=== PATIENT | male | born 1960 | race Caucasian/White ===

== ENCOUNTER → 2017-06-12 | Outpatient (CLI) | payer BC ==
[2017-06-12 10:37] LABS: Basophils % (A) 1 %; CH 31.2; Eosinophils # (A) 0.1 k/uL (0-0.7); Eosinophils % (A) 2 %; HCT 43.4 % (39.0-53.0); HDW 2.63; HGB 14.9 gm/dL (13.0-17.5); Luc % (Auto) 3; Lymphocytes # (A) 2.8 k/uL (1.0-4.8); Lymphocytes % (A) 37 %; MCH 30.9 pg (25.0-35.0); MCHC 34.5 g/dL (31.0-37.0); MCV 89.6 fL (80.0-100.0); Mean Platelet Volume 6.9; Monocytes # (A) 0.5 k/uL (0-1.0); Monocytes % (A) 6 %; Neutrophils # (A) 3.8 k/uL (1.3-7.7); Neutrophils % (A) 52 %; RBC 4.84 m/uL (4.30-5.90); RDW 13.1 % (11.5-15.5); WBC 7.4 k/uL (3.8-10.6); WBC (Perox) 7.82
[2017-06-12 11:01] LABS: ALT 81 U/L (21-72); AST 40 U/L (17-59); Alkaline Phosphatase 49 U/L (38-126); Anion Gap 9 mmol/L; Blood Urea Nitrogen 20 mg/dL (9-20); Calcium 9.3 mg/dL (8.4-10.2); Carbon Dioxide 25 mmol/L (22-30); Chloride 106 mmol/L (98-107); Cholesterol 115 mg/dL (<200); Glucose 107 mg/dL (74-99); HDL Cholesterol 54 mg/dL (40-60); Non-African American GFR(MDRD) >60 (>60 ml/min/1.73 sqM); Potassium 4.1 mmol/L (3.5-5.1); Sodium 140 mmol/L (137-145); Total Bilirubin 0.6 mg/dL (0.2-1.3); Total Protein 7.2 g/dL (6.3-8.2)
== END | disposition home or self-care (01) ==
LOC: LABWHC1 08:59
PROVIDERS: ATTEND Internal Medicine
DX: E78.2 Mixed hyperlipidemia (principal); I10 Essential (primary) hypertension; R53.83 Other fatigue
CPT/HCPCS: 36415; 80053; 80061; 84403; 84439; 84443; 84481; 85025

== ENCOUNTER → 2017-07-10 | Outpatient (CLI) | payer BC ==
--- NOTE | 2017-07-10 08:29 | CT ---
EXAMINATION TYPE: CT soft tissue neck w con DATE OF EXAM: 07/10/2017 7:21 AM COMPARISON: NONE HISTORY: Nasopharyngitis, nasopharyngeal mass. Sx hx removal of Uvula CT DLP: 685.5 mGycm Automated exposure control for dose reduction was used. CONTRAST: CT scan of the neck is performed following with IV Contrast, patient injected with 100 mL of Omnipaqu e 300. Axial images are obtained, coronal and sagittal reformatted images are reviewed. FINDINGS: Airway: No gross abnormality seen. Lung apices are within normal limits. Parotid/submandibular glands: No gross abnormality seen. Carotid/Vascular Structures: Patent, no evidence stenosis. Osseous Structures: Degenerative disc changes are present. Spondylosis is present greatest at C4-5, C 5-6, C6-7. There is some motion present. There is some multilevel foraminal encroachment. Other: Mucosal disease present within the bilateral maxillary and sphenoid sinus, there may be polyp disease or mucous retention cyst present. Skull base is normal. Uvula has been removed. IMPRESSION: Nasopharyngeal mass is not evident, correlate clinically. Postop changes. Sinus disease. Degenerative disc disease.
== END | disposition home or self-care (01) ==
LOC: RADCTMAIN 06:45
PROVIDERS: ATTEND Otolaryngology
DX: J31.1 Chronic nasopharyngitis (principal); Z98.890 Other specified postprocedural states
CPT/HCPCS: 70491; Q9967

== ENCOUNTER → 2018-12-07 | Outpatient (CLI) | payer OTHER ==
--- NOTE | 2018-12-07 08:42 | CT ---
EXAMINATION TYPE: CT chest w con DATE OF EXAM: 12/07/2018 COMPARISON: NONE HISTORY: Cough, Shortness of Breath CT DLP: 741.8 mGycm. Automated Exposure Control for Dose Reduction was Utilized. TECHNIQUE: CT scan of the thorax is performed following with IV Contrast, patient injected with 100 mL of Isovue 300. FINDINGS: LUNGS: There is a 5 mm solid pulmonary nodule within the left lower lobe along the interlobar fissure on axial series 4 image 39, coronal series 6 image 70, and sagittal series 7 image 104. This appears solid in nature. Right hemidiaphragm elevation is noted with overall low lung volumes and scattered areas of subsegmental atelectasis as well as pleural parenchymal scarring. No focal consolidation is seen. There is no pleural effusion or pneumothorax seen. The tracheobronchial tree is patent. MEDIASTINUM: Incidental note is made of a normal variant bovine aortic arch. There are no greater leoncio n 1 cm hilar or mediastinal lymph nodes. No pericardial effusion is seen. Coronary artery calcifica tions are noted. Ascending thoracic aorta is within normal limits measuring 3.5 cm. OTHER: There are multiple hepatic cysts the largest measuring up to 7 cm. Some subcentimeter hepatic lesions are too small to accurately characterize but are also favored to represent cysts. Hepatic par enchyma is hypoattenuated representing underlying hepatic steatosis, which somewhat limits evaluation for hepatic masses. Incidental note of a duodenal diverticulum is made. Mild multilevel degenerative changes of the spine are noted. IMPRESSION: 1. 5 mm left lower lobe pulmonary nodule for which follow-up is recommended in 6-12 months given no p riors for comparison. 2. Low lung volumes with scattered areas of subsegmental atelectasis and pleural parenchymal scarring . No evidence of focal consolidation to suggest pneumonia, pleural effusion, pneumothorax or intersti tial lung disease.
== END | disposition home or self-care (01) ==
LOC: RADCTMAIN 06:45
PROVIDERS: ATTEND Internal Medicine
DX: J98.11 Atelectasis (principal); J94.8 Other specified pleural conditions; R91.1 Solitary pulmonary nodule
CPT/HCPCS: 71260; Q9967

== ENCOUNTER → 2019-05-24 | Outpatient (CLI) | payer OTHER ==
[2019-05-24 08:23] LABS: HGB 15.4 gm/dL (13.0-17.5); MCH 30.4 pg (25.0-35.0); MCHC 34.3 g/dL (31.0-37.0); MCV 88.9 fL (80.0-100.0); Platelet Count 225 k/uL (150-450); RBC 5.07 m/uL (4.30-5.90); RDW 12.8 % (11.5-15.5); WBC 7.4 k/uL (3.8-10.6)
--- NOTE | 2019-05-24 08:29 | CT ---
EXAMINATION TYPE: CT chest w con DATE OF EXAM: 05/24/2019 COMPARISON: 12/07/2018 HISTORY: Solitary pulmonary nodule CT DLP: 930 mGycm Automated exposure control for dose reduction was used. CONTRAST: CT scan of the chest is performed with IV Contrast, patient injected with 100 ml mL of Isovue 300. FINDINGS: LUNGS: The lungs are grossly clear, there is no concerning parenchymal mass or nodule identified. T here is no pleural effusion or pneumothorax seen. The tracheobronchial tree is patent. MEDIASTINUM: There are no greater than 1 cm hilar or mediastinal lymph nodes. No pericardial effusi on is seen. Thoracic aorta is of normal caliber. The heart is not enlarged. UPPER ABDOMEN: Multiple hepatic cysts redemonstrated. Hepatic steatosis. OTHER: No additional significant abnormality is seen. IMPRESSION: 1. Previously noted pulmonary nodule is not redemonstrated. 2. Hepatic steatosis. 3. Multiple hepatic cysts.
[2019-05-24 08:46] LABS: ALT 80 U/L (21-72); AST 39 U/L (17-59); African American GFR (CKD) >90 (>60 ml/min/1.73 sqM); Albumin 4.6 g/dL (3.5-5.0); Alkaline Phosphatase 49 U/L (38-126); Anion Gap 10 mmol/L; Blood Urea Nitrogen 22 mg/dL (9-20); Calcium 9.4 mg/dL (8.4-10.2); Carbon Dioxide 27 mmol/L (22-30); Chloride 101 mmol/L (98-107); Cholesterol 120 mg/dL (<200); Glucose 113 mg/dL (74-99); HDL Cholesterol 39 mg/dL (40-60); LDL Cholesterol,Calculated 67 mg/dL (0-99); Non-African American GFR(CKD) 81 (>60 ml/min/1.73 sqM); Potassium 4.1 mmol/L (3.5-5.1); Sodium 138 mmol/L (137-145); Total Bilirubin 0.9 mg/dL (0.2-1.3); Total Protein 7.4 g/dL (6.3-8.2); Triglycerides 72 mg/dL (<150)
== END | disposition home or self-care (01) ==
LOC: RADCTMAIN 06:32
PROVIDERS: ATTEND Internal Medicine
DX: R91.1 Solitary pulmonary nodule (principal); I10 Essential (primary) hypertension; R94.5 Abnormal results of liver function studies; E55.9 Vitamin D deficiency, unspecified; G47.30 Sleep apnea, unspecified
CPT/HCPCS: 80061; 80053; 85027; 82306; 71260; Q9967

== ENCOUNTER 2019-09-29 09:37 | Emergency (ER) | payer OTHER ==
[2019-09-29 09:45] VITALS: RESP 18
[2019-09-29] MEDS ORDERED: DIPH,PERTUS(ACELL)TETVAC-LF 0.5 ML VIAL IM ONE (10:35)
[2019-09-29] MEDS ORDERED: ceFAZolin 1,000 MG VIAL (IM USE) IM STA (10:35)
--- NOTE | 2019-09-29 10:57 | XR ---
EXAMINATION TYPE: XR humerus RT DATE OF EXAM: 09/29/2019 COMPARISON: NONE HISTORY: Pain TECHNIQUE: 2 views submitted. FINDINGS: The osseous structures are intact and the joint spaces are preserved. There is air overlying the mid humerus likely related to soft tissue laceration correlate clinically to exclude infectious etiology . IMPRESSION: 1. No acute fracture or dislocation. See above.
[2019-09-29] MEDS ORDERED: LIDOCAINE/EPINEPHR/TETRACAINE 5 ML BOTTLE TOPICAL ONE (10:59)
[2019-09-29] MEDS ORDERED: LIDOCAINE 1% INJ 10MG/ML (20 ML MDV) SQ ONE (10:59)
--- NOTE | 2019-09-29 12:24 | ED ---
Wound/Laceration HPI - General Chief Complaint: Wound/Laceration Stated Complaint: rt arm lac Source: patient Mode of arrival: ambulatory Limitations: no limitations - History of Present Illness Initial Comments: 58-year-old male with on known history of tetanus vaccination presented emergency department for chief complaint of laceration to the right bicep her patient sutures using a carbide grinder when it slipped cutting his right bicep. This is the medial aspect. Patient denies any limitations in strength. Patient states putting his control. Patient denies any numbness tingling loss sensation or decreased range of motion distal to the injury. Patient denies any close or pallor of the extremity. Patient denied a lightheaded sensation or any other complaints denies any other areas of injury. Patient that the area might need repair presents emergency department for further evaluation. Patient denies any history of diabetes or chronic steroid use. - Related Data Home Medications Medication Instructions Recorded Confirmed Lisinopril-Hctz 20-12.5 mg 1 each PO BID 07/31/17 12/12/18 [Zestoretic 20-12.5] Spironolactone [Aldactone] 25 mg PO DAILY 07/31/17 12/12/18 Cholecalciferol [Vitamin D3] 5,000 unit PO DAILY 12/12/18 12/12/18 Multivit-Min/FA/Lycopen/Lutein 1 each PO DAILY 12/12/18 12/12/18 [Centrum Silver Men Tablet] Previous Rx's Medication Instructions Recorded Furosemide [Lasix] 20 mg PO DAILY #3 tab 12/29/18 Cephalexin [Keflex] 500 mg PO Q6HR 7 Days #28 cap 09/29/19 Allergies Allergy/AdvReac Type Severity Reaction Status Date / Time No Known Allergies Allergy Verified 09/29/19 09:45 Review of Systems ROS Statement: Those systems with pertinent positive or pertinent negative responses have been documented in the HPI. ROS Other: All systems not noted in ROS Statement are negative. Past Medical History Past Medical History: Hypertension, Sleep Apnea/CPAP/BIPAP Additional Past Medical History / Comment(s): BLE EDEMA AT TIMES History of Any Multi-Drug Resistant Organisms: None Reported Past Surgical History: Bowel Resection, Hernia Repair, Tonsillectomy Additional Past Surgical History / Comment(s): UPPP. COLONOSCOPY. sinus surgery with removal of polyps Past Anesthesia/Blood Transfusion Reactions: No Reported Reaction Past Psychological History: No Psychological Hx Reported Smoking Status: Never smoker Past Alcohol Use History: None Reported Past Drug Use History: None Reported - Past Family History Mother Family Medical History: Cancer Father Family Medical History: Cancer General Exam - General Exam Comments Initial Comments: General: The patient is awake and alert, in no distress, and does not appear acutely ill. Eye: Pupils are equal, round and reactive to light, extra-ocular movements are intact. No nystagmus. There is normal conjunctiva bilaterally. No signs of icterus. Ears, nose, mouth and throat: There are moist mucous membranes and no oral lesions. Neck: The neck is supple, there is no tenderness or JVD. Cardiovascular: There is a regular rate and rhythm. No murmur, rub or gallop is appreciated. Respiratory: Lungs are clear to auscultation, respirations are non-labored, breath sounds are equal. No wheezes, stridor, rales, or rhonchi. Musculoskeletal: Normal ROM of the UE b/l, some tenderss to area of the bicep.Strength 5/5 of the biceps triceps with flexion-extension of the elbow. Sensation intact. radial and ulnar pulses equal bilaterally 2+. Patient is able to make the okay finish cross thumbs-up sign extend at the wrist Neurological: A&O x 3. CN II-XII intact grossly, There are no obvious motor or sensory deficits. Coordination appears grossly intact. Speech is normal. Skin: Skin is warm and dry and no rashes. 4.0 cm laceration of the right bicep medially middle aspect no tendon exposure through dermis, exposing muscle belly. No evidence of muscle belly rupture. No active bleeding Psychiatric: Cooperative, appropriate mood & affect, normal judgment. Limitations: no limitations Course Vital Signs 09/29/19 09/29/19 09:40 13:07 Temperature 97.8 F 98.3 F Pulse Rate 77 79 Respiratory 18 18 Rate Blood Pressure 171/89 141/99 O2 Sat by Pulse 98 98 Oximetry Procedures - Laceration Laceration #1 Consent Obtained: verbal consent Indication: laceration Site: upper extremity (right arm) Description: linear Depth: involves muscle layer (to the muscle belly) Anesthetic Used: lidocaine 1% Anesthesia Technique: local infiltration Amount (mls): 4 Pre-repair: wound explored, irrigated extensively, extensive debridement (of wound edges as they were cauterized by the edges of the carbide grinder) Type of Sutures: nylon, vicryl Size of Sutures: 4-0 (nylon), 5-0 (vicyrl) Number of Sutures: 12 (3 internal sutures with buried knot, 9 external nylon both simple interrupted) Technique: simple, interrupted Patient Tolerated Procedure: well, no complications Additional Comments: Sterile procedure. extensive irrigation, debridment of edges, exploration internal/external repair. Medical Decision Making - Medical Decision Making 68-year-old male presenting for right arm laceration. Repaired internally (vicryl 5.0) and externally (nylon 4.0). Wound was a valid prior vomiting provider who is agreeable with the repair process. Wound edges approximated well. Patient replaced and prosodic antibiotic tetanus was updated. X-ray revealed no foreign body area was extensively irrigated. Patient discharged on keflex with return parameters, suture care and pcp f/u. Disposition Clinical Impression: Laceration of right upper arm Disposition: HOME SELF-CARE Condition: Good Instructions (If sedation given, give patient instructions): Care For Your Stitches (ED), Laceration (ED) Additional Instructions: Please use medication as discussed. Please follow-up for suture removal in 7-10 days. Please return to emergency room if the symptoms increase or worsen or for any other concerns, redness, arm weakness. Prescriptions: Cephalexin [Keflex] 500 mg PO Q6HR 7 Days #28 cap Is patient prescribed a controlled substance at d/c from ED?: No Referrals: Joni Allen MD [Primary Care Provider] - 1-2 days Time of Disposition: 12:22
[2019-09-29 13:08] VITALS: BP 141/99; PULSE 79; TEMP 98.3
== END 2019-09-29 13:07 | disposition home or self-care (01) ==
LOC: EC 09:37
DX: S41.111A Laceration without foreign body of right upper arm, initial encounter (principal); I10 Essential (primary) hypertension; G47.30 Sleep apnea, unspecified; Z79.899 Other long term (current) drug therapy; Z99.89 Dependence on other enabling machines and devices; W31.89XA Contact with other specified machinery, initial encounter
CPT/HCPCS: 73060; 90715; 99283; 12001; 90471; 96372; J0690; J2001

== ENCOUNTER → 2020-07-17 | Outpatient (CLI) | payer BC ==
--- NOTE | 2020-07-17 16:31 | US ---
EXAMINATION TYPE: US carotid duplex BILAT DATE OF EXAM: 07/17/2020 COMPARISON: NONE CLINICAL HISTORY: H53.43 VF defect. Very difficult exam due to patient's mari and body habitus EXAM MEASUREMENTS: RIGHT: Peak Systolic Velocity (PSV) cm/sec ----- Right CCA: 107 ----- Right ICA: 98.7 ----- Right ECA: 70.8 ICA/CCA ratio: 0.9 RIGHT: End Diastole cm/sec ----- Right CCA: 17.5 ----- Right ICA: 16.2 ----- Right ECA: 13.0 LEFT: Peak Systolic Velocity (PSV) cm/sec ----- Left CCA: 95.3 ----- Left ICA: 87.2 ----- Left ECA: 75.5 ICA/CCA ratio: 0.9 LEFT: End Diastole cm/sec ----- Left CCA: 23.5 ----- Left ICA: 27.8 ----- Left ECA: 13.2 VERTEBRALS (direction of flow): Right Vertebral: Antegrade Left Vertebral: Antegrade Rhythm: Normal Minimal amount of plaque visualized, no elevated velocities, no significant stenosis as visualized IMPRESSION: 1. Minimal amount of plaque bilaterally with no significant hemodynamic stenosis. Criteria for Assigning % of Stenosis / Diameter reduction (Estimation based on the indirect measurements of the internal carotid artery velocities (ICA PSV). 1. Normal (no stenosis)=ICA PSV < 125 cm/s: ratio < 2.0: ICA EDV<40 cm/s. 2. Less than 50% stenosis=ICA PSV < 125 cm/s: ratio < 2.0: ICA EDV<40 cm/s. 3. 50 to 69% stenosis=ICA PSV of 125 to 230 cm/s: ration 2.0 ? 4.0: ICA EDV 40-100 cm/s. 4. Greater than 70% stenosis to near occlusion= ICA PSV > 230 cm/s: ratio > 4.0: ICA EDV > 100 cm/s. 5. Near occlusion= ICA PSV velocities may be low or undetectable: variable ratio and ICA EDV. 6. Total occlusion=unable to detect flow.
--- NOTE | 2020-07-18 10:08 | MR ---
EXAMINATION TYPE: MR brain wo/w con DATE OF EXAM: 07/17/2020 COMPARISON: None HISTORY: Glaucoma TECHNIQUE: Multiplanar, multisequence images of the brain and brainstem is performed without and with IV contras t, utilizing 13 mL intravenous Gadavist . FINDINGS: Diffusion weighted images demonstrate no evidence of a recent infarct or other diffusion. The ventricular system and cisternal spaces are normal in size and appearance. The brain volume is a ge appropriate. Midline structures demonstrate normal morphology. Cerebellar tonsils low-lying in position approximat birdie 1 to 2 mm below the foramen magnum.. Post contrast images demonstrate no abnormal enhancement. T he dural venous sinuses appear patent. Changes of chronic sinusitis noted. Artifact distorts the orbits which are nondiagnostic in today's e xam. There is a small cyst within the posterior nasopharynx measuring 1.5 x 0.5 cm could represent a Thornwaldt cyst. No significant abnormal signal noted within the white matter. IMPRESSION: 1. Cerebellar tonsils low-lying in position approximately 1-2 mm below the foramen magnum. No tonsill ar beaking. Correlate for Chiari malformation. 2. Changes of chronic sinusitis.
== END | disposition home or self-care (01) ==
LOC: RADMRIMAIN 13:47
PROVIDERS: ATTEND Ophthalmology
DX: I65.23 Occlusion and stenosis of bilateral carotid arteries (principal); H40.1131 Primary open-angle glaucoma, bilateral, mild stage; H53 Visual disturbances
CPT/HCPCS: 93880; 70553; A9585

== ENCOUNTER → 2020-09-08 | Outpatient (CLI) | payer BC | END | disposition home or self-care (01) | LOC: LABWHC1 15:54 | PROVIDERS: ATTEND Nurse Practitioner Adult Health | DX: Z20.828 Contact with and (suspected) exposure to other viral communicable diseases (principal) | CPT/HCPCS: U0003; C9803 ==

== ENCOUNTER → 2021-01-06 | Outpatient (CLI) | payer BC | END | disposition home or self-care (01) | LOC: LABWHC1 13:27 | PROVIDERS: ATTEND Internal Medicine | DX: U07.1 COVID-19 (principal) | CPT/HCPCS: U0003; C9803; U0005 ==

== ENCOUNTER 2021-01-09 13:12 | Emergency (ER) | payer BC ==
--- NOTE | 2021-01-09 13:56 | ED ---
General Adult HPI - General Chief complaint: Upper Respiratory Infection Stated complaint: Covid exposure, fever Source: patient Mode of arrival: ambulatory Limitations: no limitations - History of Present Illness Initial comments: Patient was seen for advanced triage purposes: 60-year-old male with a past medical history of hypertension presents to the emergency room for a chief complaint of possible coronavirus. Patient reports his tested + 2 days ago. Patient reports she has had headaches and hot flashes as well as a cough for the past 5 days. Patient did take something for his fever this morning. Patient does have slight shortness of breath but has been checking his oxygen at home. Denies severe SOB. Denies CP. Patient is inquiring about antibodies as his received them 2 days ago. Patient has no other complaints at this time including chest pain, abdominal pain, nausea or vomiting, headache, or visual changes. I did formally see patient in the emergency room. - Related Data Home Medications Medication Instructions Recorded Confirmed Lisinopril-Hctz 20-12.5 mg 1 each PO BID 07/31/17 12/12/18 [Zestoretic 20-12.5] Spironolactone [Aldactone] 25 mg PO DAILY 07/31/17 12/12/18 Cholecalciferol [Vitamin D3] 5,000 unit PO DAILY 12/12/18 12/12/18 Multivit-Min/FA/Lycopen/Lutein 1 each PO DAILY 12/12/18 12/12/18 [Centrum Silver Men Tablet] Previous Rx's Medication Instructions Recorded Furosemide [Lasix] 20 mg PO DAILY #3 tab 12/29/18 Cephalexin [Keflex] 500 mg PO Q6HR 7 Days #28 cap 09/29/19 Allergies Allergy/AdvReac Type Severity Reaction Status Date / Time No Known Allergies Allergy Verified 01/09/21 13:49 Review of Systems ROS Statement: Those systems with pertinent positive or pertinent negative responses have been documented in the HPI. ROS Other: All systems not noted in ROS Statement are negative. Past Medical History Past Medical History: Hypertension, Sleep Apnea/CPAP/BIPAP Additional Past Medical History / Comment(s): BLE EDEMA AT TIMES History of Any Multi-Drug Resistant Organisms: None Reported Past Surgical History: Bowel Resection, Hernia Repair, Tonsillectomy Additional Past Surgical History / Comment(s): UPPP. COLONOSCOPY. sinus surgery with removal of polyps Past Anesthesia/Blood Transfusion Reactions: No Reported Reaction Past Psychological History: No Psychological Hx Reported Past Alcohol Use History: None Reported Past Drug Use History: None Reported - Past Family History Mother Family Medical History: Cancer Father Family Medical History: Cancer General Exam Limitations: no limitations General appearance: alert, in no apparent distress Head exam: Present: atraumatic, normocephalic, normal inspection Eye exam: Present: normal appearance, PERRL, EOMI. Absent: scleral icterus, conjunctival injection, periorbital swelling ENT exam: Present: normal exam, mucous membranes moist Neck exam: Present: normal inspection. Absent: tenderness, meningismus, lymphadenopathy Respiratory exam: Present: normal lung sounds bilaterally. Absent: respiratory distress, wheezes, rales, rhonchi, stridor Cardiovascular Exam: Present: regular rate, normal rhythm, normal heart sounds. Absent: systolic murmur, diastolic murmur, rubs, gallop, clicks GI/Abdominal exam: Present: soft, normal bowel sounds. Absent: distended, tenderness, guarding, rebound, rigid Course Vital Signs 01/09/21 01/09/21 01/09/21 13:44 15:23 15:24 Temperature 98.5 F 99.9 F H Pulse Rate 95 89 Respiratory 18 20 Rate Blood Pressure 145/90 147/93 O2 Sat by Pulse 93 L 89 L 93 L Oximetry 01/09/21 16:58 Temperature 99.3 F Pulse Rate 86 Respiratory 20 Rate Blood Pressure 146/88 O2 Sat by Pulse 94 L Oximetry Medical Decision Making - Medical Decision Making Vitals are stable. Patient is 93% on room air initially. I did recheck this and he is 95% on repeat vitals at 1430. No respiratory distress. COVID is detected. Mild opacities concerning for infiltrates on chest x-ray. At this time patient still satting at 95%. He is not requiring admission. He does however prefer antibodies. I discussed risks of this and he is agreeable. A pulse ox of 89 was recorded in the patient's vitals however this is not accurate. We repeated this. It has consistently been in the low to mid 90s. He is not in any respiratory distress. At this time I do not feel patient requires admission. He is comfortable going home and is agreeable to the antibody infusion.Strict return parameters discussed. - Lab Data Lab Results 01/09/21 Range/Units 13:52 Coronavirus (PCR) Detected A (Not Detectd) Disposition Clinical Impression: COVID-19 Disposition: HOME SELF-CARE Condition: Good Instructions (If sedation given, give patient instructions): Coronavirus Diseas e 2019 (COVID-19) Additional Instructions: Please drink plenty of fluids. Take Motrin and Tylenol for fever. Follow-up with your doctor. If you're having worsening symptoms such as worsening soreness of breath return to the emergency room. Is patient prescribed a controlled substance at d/c from ED?: No Referrals: Lance Valles [Primary Care Provider] - 1-2 days Time of Disposition: 14:46
--- NOTE | 2021-01-09 14:13 | XR ---
EXAMINATION TYPE: XR chest 2V DATE OF EXAM: 01/09/2021 COMPARISON: NONE HISTORY: Cough and shortness of breath. TECHNIQUE: Frontal and lateral views of the chest are obtained. FINDINGS: There is mild perihilar and bibasilar streaky opacities. No pleural effusion, or pneumotho rax seen. The cardiac silhouette size is within normal limits. The osseous structures are intact. IMPRESSION: Mild opacities, concerning for infiltrates.
[2021-01-09] MEDS: BAMLANIVIMAB (EUA) 700 MG, ETESEVIMAB (EUA) 1,400 MG in SODIUM CHLORIDE 0.9% 50 ML IVPB ONE (15:21)
[2021-01-09 15:26] VITALS: RESP 20
[2021-01-09 16:59] VITALS: BP 146/88; PULSE 86; TEMP 99.3
== END 2021-01-09 16:58 | disposition home or self-care (01) ==
LOC: EC 13:12
DX: U07.1 COVID-19 (principal); I10 Essential (primary) hypertension; G47.30 Sleep apnea, unspecified
CPT/HCPCS: 87635; 71046; 99285; 96365; Q0245

== ENCOUNTER 2021-01-10 10:00 | Emergency (ER) | payer BC ==
--- NOTE | 2021-01-10 10:51 | ED ---
General Adult HPI - General Source: patient, RN notes reviewed Mode of arrival: wheelchair Limitations: no limitations <Dale Weems - Last Filed: 01/10/21 12:21> <Donita Lawrence - Last Filed: 01/11/21 07:57> - General Chief complaint: Shortness of Breath Stated complaint: Covid Time Seen by Provider: 01/10/21 10:09 - History of Present Illness Initial comments: 60-year-old male with a past medical history of hypertension presents to the emergency room for a chief complaint of shortness of breath. Patient reports that he tested positive for Delarosa virus yesterday after having symptoms for about 4-5 days. Patient reports that he did receive antibody infusion yesterday through the ER. Patient reports his oxygen has been drug at home. He states he is here today because his needed to take any of that her shortness of breath. He states he feels jittery and sweaty. He states he noticed his christie thing was faster but does not feel extraordinarily short of breath.Patient has no other complaints at this time including, chest pain, abdominal pain, nausea or vomiting, headache, or visual changes. (Dale Weems) - Related Data Home Medications Medication Instructions Recorded Confirmed Spironolactone [Aldactone] 25 mg PO DAILY 07/31/17 01/10/21 Dorzolamide-Timol 2.23%/0.68% 1 drop LEFT EYE BID 01/10/21 01/10/21 [Cosopt] Latanoprost [Xalatan 0.005%] 1 drop RIGHT EYE HS 01/10/21 01/10/21 Allergies Allergy/AdvReac Type Severity Reaction Status Date / Time No Known Allergies Allergy Verified 01/10/21 12:06 Review of Systems ROS Other: All systems not noted in ROS Statement are negative. <Dale Weems - Last Filed: 01/10/21 12:21> ROS Other: All systems not noted in ROS Statement are negative. <Donita Lawrence - Last Filed: 01/11/21 07:57> ROS Statement: Those systems with pertinent positive or pertinent negative responses have been documented in the HPI. Past Medical History Past Medical History: Hypertension, Sleep Apnea/CPAP/BIPAP Additional Past Medical History / Comment(s): BLE EDEMA AT TIMES History of Any Multi-Drug Resistant Organisms: None Reported Past Surgical History: Bowel Resection, Hernia Repair, Tonsillectomy Additional Past Surgical History / Comment(s): UPPP. COLONOSCOPY. sinus surgery with removal of polyps Past Anesthesia/Blood Transfusion Reactions: No Reported Reaction Past Psychological History: No Psychological Hx Reported Smoking Status: Former smoker Past Alcohol Use History: None Reported Past Drug Use History: None Reported - Past Family History Mother Family Medical History: Cancer Father Family Medical History: Cancer <Dale Weems P - Last Filed: 01/10/21 12:21> General Exam Limitations: no limitations General appearance: alert, in no apparent distress Head exam: Present: atraumatic, normocephalic, normal inspection Eye exam: Present: normal appearance, PERRL, EOMI. Absent: scleral icterus, conjunctival injection, periorbital swelling ENT exam: Present: normal exam, mucous membranes moist Neck exam: Present: normal inspection, full ROM. Absent: tenderness, meningismus, lymphadenopathy Respiratory exam: Present: normal lung sounds bilaterally. Absent: respiratory distress, wheezes, rales, rhonchi, stridor Cardiovascular Exam: Present: regular rate, normal rhythm, normal heart sounds. Absent: systolic murmur, diastolic murmur, rubs, gallop, clicks GI/Abdominal exam: Present: soft, normal bowel sounds. Absent: distended, tenderness, guarding, rebound, rigid <Dale Weems P - Last Filed: 01/10/21 12:21> Course Vital Signs 01/10/21 01/10/21 01/10/21 10:34 10:38 11:01 Temperature Pulse Rate 84 Respiratory 16 26 H Rate Blood Pressure 142/89 O2 Sat by Pulse 96 92 L Oximetry 01/10/21 01/10/21 12:00 12:34 Temperature 98.4 F 98.5 F Pulse Rate 89 80 Respiratory 22 34 H Rate Blood Pressure 137/90 148/71 O2 Sat by Pulse 92 L Oximetry EKG Findings - EKG Comments: EKG Findings:: Normal sinus rhythm, ventricular rate 76, NJ interval 160, QTC 436 <Dale Weems P - Last Filed: 01/10/21 12:21> Medical Decision Making - Lab Data Result diagrams: 01/10/21 10:55 01/10/21 10:55 <Dale Weems - Last Filed: 01/10/21 12:21> - Lab Data Result diagrams: 01/10/21 10:55 01/10/21 10:55 <Donita Lawrence - Last Filed: 01/11/21 07:57> - Medical Decision Making vitals stable. Patient is 92-95% on room air. He is well appearing. No respiratory distress. CBC and CMP unremarkable. Patient orally rehydrating for slight azotemia. Inflammatory markers are elevated likely secondary to Covid. D-dimer is normal. Chest x-ray shows improving mild scattered infiltrates greatest in the left lung base. Patient did receive antibody infusion yesterday. Laboratory oxygenation was in the low 90s down to 89 at the lowest. Did not drop below 89. At this time patient is stable for outpatient management. He does have pulse oximeter at home that he will watch. He will continue Motrin and Tylenol. He will return here for any worsening symptoms. (Dale Weems) I was available for consultation in the emergency department. The history and physical exam were done by the midlevel provider. I was consulted for this patients care. I reviewed the case with the midlevel provider and based on their presentation of the patient, I agree with the assessment, medical decision making and plan of care as documented. Chart was dictated using [employer] dictation software. Attempts were made to correct any dictation errors however some typographical errors may persist. (Donita Lawrence) - Lab Data Lab Results 01/10/21 01/10/21 01/10/21 Range/Units 10:55 10:55 10:55 WBC 9.1 (3.8-10.6) k/uL RBC 4.95 (4.30-5.90) m/uL Hgb 14.8 (13.0-17.5) gm/dL Hct 44.1 (39.0-53.0) % MCV 89.1 (80.0-100.0) fL MCH 29.8 (25.0-35.0) pg MCHC 33.5 (31.0-37.0) g/dL RDW 12.9 (11.5-15.5) % Plt Count 109 L (150-450) k/uL MPV 7.6 Neutrophils % 85 % Lymphocytes % 10 % Monocytes % 5 % Eosinophils % 0 % Basophils % 0 % Neutrophils # 7.7 (1.3-7.7) k/uL Lymphocytes # 0.9 L (1.0-4.8) k/uL Monocytes # 0.4 (0-1.0) k/uL Eosinophils # 0.0 (0-0.7) k/uL Basophils # 0.0 (0-0.2) k/uL PT 10.2 (9.0-12.0) sec INR 0.9 (<1.2) APTT 24.3 (22.0-30.0) sec D-Dimer 0.18 (<0.60) mg/L FEU Sodium 138 (137-145) mmol/L Potassium 4.0 (3.5-5.1) mmol/L Chloride 101 (98-107) mmol/L Carbon Dioxide 28 (22-30) mmol/L Anion Gap 9 mmol/L BUN 23 H (9-20) mg/dL Creatinine 0.71 (0.66-1.25) mg/dL Est GFR (CKD-EPI)AfAm >90 (>60 ml/min/1.73 sqM) Est GFR (CKD-EPI)NonAf >90 (>60 ml/min/1.73 sqM) Glucose 157 H (74-99) mg/dL Plasma Lactic Acid Vernon (0.7-2.0) mmol/L Calcium 8.6 (8.4-10.2) mg/dL Magnesium 1.8 (1.6-2.3) mg/dL Ferritin 614.2 H (22.0-322.0) ng/mL Total Bilirubin 0.7 (0.2-1.3) mg/dL AST 44 (17-59) U/L ALT 60 H (4-49) U/L Alkaline Phosphatase 55 (38-126) U/L Lactate Dehydrogenase 813 H (313-618) U/L C-Reactive Protein 59.4 H (<10.0) mg/L Total Protein 6.7 (6.3-8.2) g/dL Albumin 4.0 (3.5-5.0) g/dL Procalcitonin (0.02-0.09) ng/mL 01/10/21 01/10/21 Range/Units 10:55 10:55 WBC (3.8-10.6) k/uL RBC (4.30-5.90) m/uL Hgb (13.0-17.5) gm/dL Hct (39.0-53.0) % MCV (80.0-100.0) fL MCH (25.0-35.0) pg MCHC (31.0-37.0) g/dL RDW (11.5-15.5) % Plt Count (150-450) k/uL MPV Neutrophils % % Lymphocytes % % Monocytes % % Eosinophils % % Basophils % % Neutrophils # (1.3-7.7) k/uL Lymphocytes # (1.0-4.8) k/uL Monocytes # (0-1.0) k/uL Eosinophils # (0-0.7) k/uL Basophils # (0-0.2) k/uL PT (9.0-12.0) sec INR (<1.2) APTT (22.0-30.0) sec D-Dimer (<0.60) mg/L FEU Sodium (137-145) mmol/L Potassium (3.5-5.1) mmol/L Chloride (98-107) mmol/L Carbon Dioxide (22-30) mmol/L Anion Gap mmol/L BUN (9-20) mg/dL Creatinine (0.66-1.25) mg/dL Est GFR (CKD-EPI)AfAm (>60 ml/min/1.73 sqM) Est GFR (CKD-EPI)NonAf (>60 ml/min/1.73 sqM) Glucose (74-99) mg/dL Plasma Lactic Acid Vernon 1.2 (0.7-2.0) mmol/L Calcium (8.4-10.2) mg/dL Magnesium (1.6-2.3) mg/dL Ferritin (22.0-322.0) ng/mL Total Bilirubin (0.2-1.3) mg/dL AST (17-59) U/L ALT (4-49) U/L Alkaline Phosphatase (38-126) U/L Lactate Dehydrogenase (313-618) U/L C-Reactive Protein (<10.0) mg/L Total Protein (6.3-8.2) g/dL Albumin (3.5-5.0) g/dL Procalcitonin 0.17 H (0.02-0.09) ng/mL Disposition Is patient prescribed a controlled substance at d/c from ED?: No Time of Disposition: 12:21 <Dale Weems - Last Filed: 01/10/21 12:21> <Donita Lawrence - Last Filed: 01/11/21 07:57> Clinical Impression: COVID-19 Disposition: HOME SELF-CARE Condition: Good Instructions (If sedation given, give patient instructions): Coronavirus Disease 2019 (COVID-19) Additional Instructions: Please continue to check your pulse ox. If it is continuously staying in the 80s return to the emergency room. Return for any other worsening symptoms. Otherwise follow-up with your doctor. Referrals: Lance Valles [Primary Care Provider] - 1-2 days
[2021-01-10 11:18] LABS: Basophils % (A) 0 %; Eosinophils % (A) 0 %; HCT 44.1 % (39.0-53.0); HGB 14.8 gm/dL (13.0-17.5); Lymphocytes # (A) 0.9 k/uL (1.0-4.8); Lymphocytes % (A) 10 %; MCH 29.8 pg (25.0-35.0); MCHC 33.5 g/dL (31.0-37.0); MCV 89.1 fL (80.0-100.0); Mean Platelet Volume 7.6; Monocytes # (A) 0.4 k/uL (0-1.0); Monocytes % (A) 5 %; Neutrophils # (A) 7.7 k/uL (1.3-7.7); Neutrophils % (A) 85 %; Platelet Count 109 k/uL (150-450); RBC 4.95 m/uL (4.30-5.90); RDW 12.9 % (11.5-15.5); WBC 9.1 k/uL (3.8-10.6)
[2021-01-10 11:33] LABS: D-Dimer 0.18 mg/L FEU (<0.60); INR 0.9 (<1.2); Partial Thromboplastin Time 24.3 sec (22.0-30.0); Prothrombin Time 10.2 sec (9.0-12.0)
--- NOTE | 2021-01-10 11:33 | XR ---
EXAMINATION TYPE: XR chest 1V portable DATE OF EXAM: 01/10/2021 COMPARISON: 01/09/2021 INDICATION: Short of breath TECHNIQUE: Single frontal view of the chest is obtained. FINDINGS: The heart size is normal. The pulmonary vasculature is normal. There may be some improvement of the previous nonspecific infiltrate. Mild residual remaining at the left base. Follow up exams can be performed as clinically indicated. IMPRESSION: 1. Improving mild scattered infiltrates greatest in the left lung base. Follow-up can be performed as clinically indicated
[2021-01-10 11:37] LABS: ALT 60 U/L (4-49); AST 44 U/L (17-59); African American GFR (CKD) >90 (>60 ml/min/1.73 sqM); Alkaline Phosphatase 55 U/L (38-126); Anion Gap 9 mmol/L; Blood Urea Nitrogen 23 mg/dL (9-20); C Reactive Protein 59.4 mg/L (<10.0); Calcium 8.6 mg/dL (8.4-10.2); Carbon Dioxide 28 mmol/L (22-30); Chloride 101 mmol/L (98-107); Glucose 157 mg/dL (74-99); LDH 813 U/L (313-618); Magnesium 1.8 mg/dL (1.6-2.3); Non-African American GFR(CKD) >90 (>60 ml/min/1.73 sqM); Sodium 138 mmol/L (137-145); Total Bilirubin 0.7 mg/dL (0.2-1.3); Total Protein 6.7 g/dL (6.3-8.2)
[2021-01-10 12:35] VITALS: BP 148/71; PULSE 80; RESP 34; TEMP 98.5
[2021-01-10 17:14] LABS: Ferritin 614.2 ng/mL (22.0-322.0)
== END 2021-01-10 12:34 | disposition home or self-care (01) ==
LOC: EC 10:00
DX: U07.1 COVID-19 (principal); I10 Essential (primary) hypertension; Z90.09 Acquired absence of other part of head and neck; Z87.891 Personal history of nicotine dependence
CPT/HCPCS: 36415; 71045; 80053; 82728; 83605; 83615; 83735; 84145; 85025; 85379; 85610; 85730; 86140; 93005; 99285

== ENCOUNTER → 2021-10-26 | Outpatient (CLI) | payer BC ==
--- NOTE | 2021-10-26 16:55 | CONS ---
CONSULTATION REASON FOR EVALUATION: Sleep apnea 60-year-old male patient well known to me. The patient carried diagnosis of obstructive sleep apnea many years back. He underwent a UPPP and he subsequently had a followup home sleep study that was done on 11/11/2014 and at that time the patient was not found to have any significant form of sleep breathing disorder. His AHI was 4.6, and he did not have any significant nocturnal oxygen desaturation. The patient is coming in for evaluation. 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 His weight has remained stable. Probably has gained around 6 pounds over the past 6-7 years. He on and off snores. He is able to drive long distances going back and forth between [place] and [place] without having to fall asleep. He does swing shifts. 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 He is averaging around 6 hours of sleep per 24 hour period. He is tired, yet not to the point where he is sleepy or is falling asleep while driving. He does not fall asleep while doing day-to-day activities. His weight has been slight high by around 6-7 pounds since 2014. He may take naps during the day if he is given the opportunity to do so. Never been involved in a motor vehicle accident because of feeling drowsy or sleepy. He sleeps on his stomach and he has no other major medical problems or comorbidities. Exeter score is noted to be high at around 15. PAST MEDICAL HISTORY: Glaucoma, obesity, obstructive sleep apnea with a previous UPPP. Last home sleep study was done in January of 2015. PAST SURGICAL HISTORY: Includes UPPP for obstructive sleep apnea, laser eye surgery for glaucoma back in 2020 involving both eyes and hernia repair. DRUG ALLERGIES: Not known. MEDICATIONS: Includes amlodipine, Aldactone, latanoprost eye drops, and albuterol HFA. SOCIAL HISTORY: Nonsmoker , no history of alcohol. No history of IV drugs. FAMILY HISTORY: Negative for obstructive sleep apnea. There is positive history of dementia in the family including his parents. REVIEW OF SYSTEMS: Fourteen-point review of system was done. Positive findings are mentioned above in history of present illness. No nocturia. Occasionally grinds his teeth. No sleepwalking or sleeptalking. No anxiety or panic attacks. No restlessness in lower extremities. No anxiety. No depression. PHYSICAL EXAMINATION: BP is 153/92, pulse 106, respirations 16, temperature 97.8. Saturation 94% on room air. Height is 6'0", weight is 306 and neck size is 19 inches. GENERAL appearance: Calm, comfortable. Head, atraumatic, normocephalic. NECK: Supple. No JVD. No goiter or neck masses. Uvula has been resected and the patient's soft palate has also been shaved off surgically. He does have significant crowding of posterior pharynx. Mallampati class 3. LUNGS: Clear to auscultation. HEART: Heart sounds are regular rate and rhythm. Normal S1, S2. No S3, no murmurs. ABDOMEN: Soft, nontender. No organomegaly. EXTREMITIES: No edema. No cyanosis or clubbing. IMPRESSION: 1. History of obstructive sleep apnea with a previous UPPP. Most recent home sleep study that was done in 2014 showed no evidence of any sleep breathing disorder. AHI was 4.5. 2. Obesity with a BMI of 40.9. 3. Hypertension. 4. History of glaucoma. 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 He is concerned that some of the symptoms of obstructive sleep apnea are back. No major weight gain. No other new-onset comorbidities. We will do a home sleep study to reevaluate the presence of sleep apnea and decide if treatment is needed. We will continue to follow. MMODL / IJN: [id number] /
== END ==
LOC: SLEEP 14:47
PROVIDERS: ATTEND Internal Medicine Critical Care Medicine
DX: G47.33 Obstructive sleep apnea (adult) (pediatric) (principal); Z99.89 Dependence on other enabling machines and devices; E66.9 Obesity, unspecified; Z68.41 Body mass index [BMI] 40.0-44.9, adult; I10 Essential (primary) hypertension; Z83.511 Family history of glaucoma
CPT/HCPCS: 99211

== ENCOUNTER 2021-12-12 10:21 | Inpatient (IN) | payer BC ==
[2021-12-12] MEDS ORDERED: HEPARIN SODIUM 1,000 UN/ML (10ML VL) IV ONE (10:38)
--- NOTE | 2021-12-12 10:41 | ED ---
General Adult HPI - General Chief complaint: Shortness of Breath Stated complaint: SOB, sent from Urgent care Time Seen by Provider: 12/12/21 10:25 Source: patient, RN notes reviewed, old records reviewed Mode of arrival: ambulatory Limitations: no limitations - History of Present Illness Initial comments: This is a 61-year-old male who presents emergency department stating that he has been short of breath for at least a month. Patient went to an urgent care today and they told me in atrial fibrillation for came to the hospital. Patient states she's also noted swelling in his legs as well as the shortness of breath. Patient denies any chest pain or pressure. Patient states he has been much more fatigued over the last month. Patient denies any smoking. Patient denies any drinking. Patient denies any recent fever chills or cough. Patient denies abdominal pain patient denies nausea vomiting diarrhea. Patient denies headache patient denies numbness or weakness. Patient denies lightheadedness or dizziness. - Related Data Home Medications Medication Instructions Recorded Confirmed Spironolactone [Aldactone] 25 mg PO DAILY 07/31/17 01/10/21 Dorzolamide-Timol 2.23%/0.68% 1 drop LEFT EYE BID 01/10/21 01/10/21 [Cosopt] Latanoprost [Xalatan 0.005%] 1 drop RIGHT EYE HS 01/10/21 01/10/21 Allergies Allergy/AdvReac Type Severity Reaction Status Date / Time No Known Allergies Allergy Verified 01/10/21 12:06 Review of Systems ROS Statement: Those systems with pertinent positive or pertinent negative responses have been documented in the HPI. ROS Other: All systems not noted in ROS Statement are negative. Past Medical History Past Medical History: Hypertension, Sleep Apnea/CPAP/BIPAP Additional Past Medical History / Comment(s): BLE EDEMA AT TIMES History of Any Multi-Drug Resistant Organisms: None Reported Past Surgical History: Bowel Resection, Hernia Repair, Tonsillectomy Additional Past Surgical History / Comment(s): UPPP. COLONOSCOPY. sinus surgery with removal of polyps Past Anesthesia/Blood Transfusion Reactions: No Reported Reaction Past Psychological History: No Psychological Hx Reported Smoking Status: Former smoker Past Alcohol Use History: None Reported Past Drug Use History: None Reported - Past Family History Mother Family Medical History: Cancer Father Family Medical History: Cancer General Exam - General Exam Comments Initial Comments: GENERAL: Patient is well-developed and well-nourished. Patient is nontoxic and well- hydrated and is in mild distress. ENT: Neck is soft and supple. No significant lymphadenopathy is noted. Oropharynx is clear. Moist mucous membranes. Neck has full range of motion without eliciting any pain. EYES: The sclera were anicteric and conjunctiva were pink and moist. Extraocular movements were intact and pupils were equal round and reactive to light. Eyelids were unremarkable. PULMONARY: Unlabored respirations. Good breath sounds bilaterally. No audible rales rhonchi or wheezing was noted. CARDIOVASCULAR: There is a regular rate and rhythm without any murmurs gallops or rubs. ABDOMEN: Soft and nontender with normal bowel sounds. SKIN: Skin is clear with no lesions or rashes and otherwise unremarkable. NEUROLOGIC: Patient is alert and oriented x3. Cranial nerves II through XII are grossly intact. Motor and sensory are also intact. Normal speech, volume and content. Symmetrical smile. MUSCULOSKELETAL: Normal extremities with adequate strength and full range of motion. LYMPHATICS: No significant lymphadenopathy is noted PSYCHIATRIC: Normal psychiatric evaluation. Limitations: no limitations Course Vital Signs 12/12/21 12/12/21 10:22 10:37 Temperature 97.9 F Pulse Rate 114 H Respiratory 22 16 Rate Blood Pressure 150/91 O2 Sat by Pulse 96 Oximetry Medical Decision Making - Medical Decision Making EKG shows atrial fibrillation with rapid ventricular response at 113 bpm QRS is 94 QT interval 308 QTC is 375. Patient's EKG shows no ST segment elevation or depression. I started the patient on a Cardizem drip as well as in the room his heart rate would go up to 130s. I started heparin on the patient. Chest x-ray shows no acute abnormality. I spoke with some positions agreed to admit the patient admitted the patient wrote admitting orders. - Lab Data Result diagrams: 12/12/21 10:41 12/12/21 10:41 Lab Results 12/12/21 12/12/21 12/12/21 Range/Units 10:41 10:41 10:41 WBC 12.0 H (3.8-10.6) k/uL RBC 5.20 (4.30-5.90) m/uL Hgb 16.2 (13.0-17.5) gm/dL Hct 47.4 (39.0-53.0) % MCV 91.1 (80.0-100.0) fL MCH 31.1 (25.0-35.0) pg MCHC 34.1 (31.0-37.0) g/dL RDW 13.4 (11.5-15.5) % Plt Count 210 (150-450) k/uL MPV 7.4 Neutrophils % 89 % Lymphocytes % 5 % Monocytes % 3 % Eosinophils % 1 % Basophils % 0 % Neutrophils # 10.7 H (1.3-7.7) k/uL Lymphocytes # 0.6 L (1.0-4.8) k/uL Monocytes # 0.4 (0-1.0) k/uL Eosinophils # 0.1 (0-0.7) k/uL Basophils # 0.1 (0-0.2) k/uL PT 10.8 (9.0-12.0) sec INR 1.0 (<1.2) APTT 22.2 (22.0-30.0) sec Sodium 138 (137-145) mmol/L Potassium 4.4 (3.5-5.1) mmol/L Chloride 107 (98-107) mmol/L Carbon Dioxide 21 L (22-30) mmol/L Anion Gap 10 mmol/L BUN 32 H (9-20) mg/dL Creatinine 1.06 (0.66-1.25) mg/dL Est GFR (CKD-EPI)AfAm 88 (>60 ml/min/1.73 sqM) Est GFR (CKD-EPI)NonAf 77 (>60 ml/min/1.73 sqM) Glucose 121 H (74-99) mg/dL Plasma Lactic Acid Vernon (0.7-2.0) mmol/L Calcium 8.9 (8.4-10.2) mg/dL Magnesium 1.6 (1.6-2.3) mg/dL Total Bilirubin 1.0 (0.2-1.3) mg/dL AST 40 (17-59) U/L ALT 62 H (4-49) U/L Alkaline Phosphatase 51 (38-126) U/L Troponin I (0.000-0.034) ng/mL NT-Pro-B Natriuret Pep pg/mL Total Protein 7.2 (6.3-8.2) g/dL Albumin 4.4 (3.5-5.0) g/dL 12/12/21 12/12/21 12/12/21 Range/Units 10:41 10:41 10:41 WBC (3.8-10.6) k/uL RBC (4.30-5.90) m/uL Hgb (13.0-17.5) gm/dL Hct (39.0-53.0) % MCV (80.0-100.0) fL MCH (25.0-35.0) pg MCHC (31.0-37.0) g/dL RDW (11.5-15.5) % Plt Count (150-450) k/uL MPV Neutrophils % % Lymphocytes % % Monocytes % % Eosinophils % % Basophils % % Neutrophils # (1.3-7.7) k/uL Lymphocytes # (1.0-4.8) k/uL Monocytes # (0-1.0) k/uL Eosinophils # (0-0.7) k/uL Basophils # (0-0.2) k/uL PT (9.0-12.0) sec INR (<1.2) APTT (22.0-30.0) sec Sodium (137-145) mmol/L Potassium (3.5-5.1) mmol/L Chloride (98-107) mmol/L Carbon Dioxide (22-30) mmol/L Anion Gap mmol/L BUN (9-20) mg/dL Creatinine (0.66-1.25) mg/dL Est GFR (CKD-EPI)AfAm (>60 ml/min/1.73 sqM) Est GFR (CKD-EPI)NonAf (>60 ml/min/1.73 sqM) Glucose (74-99) mg/dL Plasma Lactic Acid Vernon 1.6 (0.7-2.0) mmol/L Calcium (8.4-10.2) mg/dL Magnesium (1.6-2.3) mg/dL Total Bilirubin (0.2-1.3) mg/dL AST (17-59) U/L ALT (4-49) U/L Alkaline Phosphatase (38-126) U/L Troponin I <0.012 (0.000-0.034) ng/mL NT-Pro-B Natriuret Pep 151 pg/mL Total Protein (6.3-8.2) g/dL Albumin (3.5-5.0) g/dL Critical Care Time Critical Care Time: Yes Total Critical Care Time: 35 Disposition Clinical Impression: Atrial fibrillation with rapid ventricular response Disposition: ADMITTED IP TO THIS HOSP Referrals: Kyle Mcwilliams MD [Primary Care Provider] - 1-2 days Time of Disposition: 11:18
[2021-12-12] MEDS ORDERED: DILTIAZEM 125 MG in SODIUM CHLORIDE 0.9% 100 ML IV SCH (10:45)
[2021-12-12] MEDS ORDERED: HEPARIN SOD,PORK IN 0.45% NACL 25,000 UNIT in 0.45% NACL 1 250ML.BAG IV SCH ×2 (10:45→11:00)
[2021-12-12 10:52] LABS: Basophils # (A) 0.1 k/uL (0-0.2); Basophils % (A) 0 %; Eosinophils # (A) 0.1 k/uL (0-0.7); Eosinophils % (A) 1 %; HCT 47.4 % (39.0-53.0); HGB 16.2 gm/dL (13.0-17.5); Lymphocytes # (A) 0.6 k/uL (1.0-4.8); Lymphocytes % (A) 5 %; MCH 31.1 pg (25.0-35.0); MCHC 34.1 g/dL (31.0-37.0); MCV 91.1 fL (80.0-100.0); Mean Platelet Volume 7.4; Monocytes # (A) 0.4 k/uL (0-1.0); Monocytes % (A) 3 %; Neutrophils # (A) 10.7 k/uL (1.3-7.7); Neutrophils % (A) 89 %; Platelet Count 210 k/uL (150-450); RDW 13.4 % (11.5-15.5)
[2021-12-12 10:54] LABS: Albumin 4.4 g/dL (3.5-5.0); Calcium 8.9 mg/dL (8.4-10.2); Magnesium 1.6 mg/dL (1.6-2.3); Potassium 4.4 mmol/L (3.5-5.1); Total Protein 7.2 g/dL (6.3-8.2)
[2021-12-12 10:56] LABS: Partial Thromboplastin Time 22.2 sec (22.0-30.0); Prothrombin Time 10.8 sec (9.0-12.0)
[2021-12-12] MEDS ORDERED: HEPARIN SODIUM 1,000 UN/ML (10ML VL) IV PRN (10:58)
--- NOTE | 2021-12-12 10:59 | XR ---
EXAMINATION TYPE: XR chest 2V DATE OF EXAM: 12/12/2021 COMPARISON: 01/09/2021 HISTORY: Difficulty breathing TECHNIQUE: Frontal and lateral views of the chest are obtained. FINDINGS: There is mild interstitial prominence which was seen previously but is less severe on the current study. There is no airspace opacity. There is no pleural effusion, pleural thickening or pneumothorax. The heart and mediastinum appear normal. The osseous structures are intact. IMPRESSION: Mild interstitial prominence likely reflecting mild pulmonary vascular congestion. This is been seen on prior studies but is less prominent on the current study.
[2021-12-12] MEDS ORDERED: NITROGLYCERIN SL TABS 0.4 MG TAB SUBLINGUAL PRN (11:18)
[2021-12-12] MEDS ORDERED: ONDANSETRON 4 MG/2 ML VIAL IVP PRN (14:18)
[2021-12-12] MEDS ORDERED: NALOXONE 0.4 MG/ML 1 ML VIAL IV PRN (14:18)
[2021-12-12] MEDS ORDERED: MELATONIN 3 MG TABLET PO PRN (14:18)
[2021-12-12] MEDS ORDERED: ALPRAZolam 0.25 MG TAB PO PRN (14:18)
[2021-12-12] MEDS ORDERED: MAGNESIUM HYDROXIDE 2,400 MG/10 ML CUP PO PRN (14:18)
[2021-12-12] MEDS ORDERED: ACETAMINOPHEN TAB 325 MG TAB PO PRN (14:18)
[2021-12-12] MEDS ORDERED: FLUTICASONE 50MCG/SPRAY NASAL 16GM EA NOSTRIL PRN (14:27)
[2021-12-12] MEDS ORDERED: ALBUTEROL NEBULIZED 2.5 MG/3 ML INHALATION PRN (14:27)
--- NOTE | 2021-12-12 14:38 | P.HPIM ---
History of Present Illness H&P Date: 12/12/21 Chief Complaint: difficulty breathing This is a 61-year-old male who presents emergency department stating that he has been short of breath for at least a month. Patient went to an urgent care today and they told me in atrial fibrillation for came to the hospital. Patient states she's also noted swelling in his legs as well as the shortness of breath. Patient denies any chest pain or pressure. Patient states he has been much more fatigued over the last month. Patient denies any smoking. Patient denies any drinking. Patient denies any recent fever chills or cough. Patient denies abdominal pain patient denies nausea vomiting diarrhea. Patient denies headache patient denies numbness or weakness. Patient denies lightheadedness or dizziness. Review of Systems All 14 review of systems evaluated and all negative except for above. Past Medical History Past Medical History: Hypertension, Sleep Apnea/CPAP/BIPAP Additional Past Medical History / Comment(s): BLE EDEMA AT TIMES History of Any Multi-Drug Resistant Organisms: None Reported Past Surgical History: Bowel Resection, Hernia Repair, Tonsillectomy Additional Past Surgical History / Comment(s): UPPP. COLONOSCOPY. sinus surgery with removal of polyps Past Anesthesia/Blood Transfusion Reactions: No Reported Reaction Past Psychological History: No Psychological Hx Reported Smoking Status: Former smoker Past Alcohol Use History: None Reported Past Drug Use History: None Reported - Past Family History Mother Family Medical History: Cancer Father Family Medical History: Cancer Medications and Allergies Home Medications Medication Instructions Recorded Confirmed Type Spironolactone [Aldactone] 25 mg PO DAILY 07/31/17 12/12/21 History Latanoprost [Xalatan 0.005%] 1 drop BOTH EYES HS 01/10/21 12/12/21 History Albuterol Inhaler [Ventolin Hfa 2 puff INHALATION RT-QID PRN 12/12/21 12/12/21 History Inhaler] Cyanocobalamin (Vitamin B-12) 1,000 mcg PO DAILY 12/12/21 12/12/21 History [Vitamin B-12] Fluticasone Nasal [place] [Flonase 1 - 2 spray EA NOSTRIL DAILY PRN 12/12/21 12/12/21 History Nasal [place]] Multivit-Min/FA/Lycopen/Lutein 1 tab PO DAILY 12/12/21 12/12/21 History [Centrum Silver Men Tablet] Zinc 50 mg PO DAILY 12/12/21 12/12/21 History amLODIPine [Norvasc] 10 mg PO DAILY 12/12/21 12/12/21 History Allergies Allergy/AdvReac Type Severity Reaction Status Date / Time No Known Allergies Allergy Verified 12/12/21 13:12 Physical Exam Vitals: Vital Signs Temp Pulse Resp BP Pulse Ox 12/12/21 13:00 105 H 22 120/80 95 12/12/21 12:00 106 H 22 115/81 95 12/12/21 11:57 98.2 F 109 H 20 115/81 95 12/12/21 10:37 16 12/12/21 10:22 97.9 F 114 H 22 150/91 96 Intake and Output 12/11/21 12/12/21 12/12/21 21:59 06:59 14:59 Other: Weight 140.614 kg General: non toxic, no distress, appears at stated age. Obese Derm: warm, dry Head: atraumatic, normocephalic, symmetric Eyes: EOMI, no lid lag, anicteric sclera Mouth: no lip lesion, mucus membranes moist Cardiovascular: S1S2 irregularly irregular. Lungs: CTA bilateral, no rhonchi, no rales , no accessory muscle use Abdominal: soft, nontender to palpation, no guarding, no appreciable organomegaly Ext: no gross muscle atrophy, no edema, no contractures Neuro: CN II-XI grossly intact, no focal neuro deficits Psych: Alert, oriented, appropriate affect Results CBC & Chem 7: 12/12/21 10:41 12/12/21 10:41 Labs: Abnormal Lab Results - Last 24 Hours (Table) 12/12/21 12/12/21 Range/Units 10:41 10:41 WBC 12.0 H (3.8-10.6) k/uL Neutrophils # 10.7 H (1.3-7.7) k/uL Lymphocytes # 0.6 L (1.0-4.8) k/uL Carbon Dioxide 21 L (22-30) mmol/L BUN 32 H (9-20) mg/dL Glucose 121 H (74-99) mg/dL ALT 62 H (4-49) U/L Assessment and Plan Assessment: Assessment and plan: #New-onset atrial fibrillation with rapid ventricular response -Resume Cardizem drip per protocol -Switch IV heparin to by mouth Eliquis 5 mg twice daily -Start Lopressor 50 mg twice daily -2-D echo ordered -TSH -Cardiology consulted #Acute CHF exacerbation -Interstitial edema and a chest x-ray and bilateral lower 70 edema -Possibly secondary to new onset A. fib with rapid ventricular response or tachycardia-induced CHF -2-D echo to check EF -Start beta blockers Lopressor 50 twice a day -Resume Aldactone -Lasix 40 mg twice daily #Hypertension -Discontinue amlodipine -Patient on by mouth Lopressor #Bilateral lower extremity edema -Possible secondary to CHF. 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
[2021-12-12] MEDS ORDERED: METOPROLOL TARTRATE 50 MG TAB PO STA (15:25)
--- NOTE | 2021-12-12 15:27 | US ---
EXAMINATION TYPE: US venous doppler duplex LE BI DATE OF EXAM: 12/12/2021 3:14 PM COMPARISON: NONE CLINICAL HISTORY: swelling. SIDE PERFORMED: Bilateral TECHNIQUE: The lower extremity deep venous system is examined utilizing real time linear array sonog tayler with graded compression, doppler sonography and color-flow sonography. VESSELS IMAGED: Common Femoral Vein Deep Femoral Vein Greater Saphenous Vein * Femoral Vein Popliteal Vein Small Saphenous Vein * Proximal Calf Veins, not visualized due to body habitus and swelling (* superficial vessels) Patient of large body habitus. Right Leg: Appears negative for DVT Left Leg: Appears negative for DVT IMPRESSION: Normal exam. No evidence of deep vein thrombosis in both legs.
--- NOTE | 2021-12-12 16:06 | CONS ---
CONSULTATION CHIEF COMPLAINT: Palpitations and shortness of breath. 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 Over the last several days he has been feeling short of breath with activity and has had palpitations. He came to the emergency room, where he was found to be in atrial fibrillation with poorly controlled ventricular rate, for which Cardiology has been consulted. At the time of my evaluation he is in atrial fibrillation with better controlled ventricular rate on IV heparin and will be transitioned to Eliquis. I talked to him about his condition, short- and long-term prognosis and treatment options. I am going to treat him with anticoagulation and beta blockers for rate control, and after adequate anticoagulation I will do STEVEN cardioversion on him. PAST MEDICAL HISTORY: Significant for hypertension and COPD. CURRENT MEDICATIONS: Current medications include amlodipine 10 mg daily, albuterol, spironolactone and Flonase. ALLERGIES: NO KNOWN DRUG ALLERGIES. FAMILY HISTORY: Negative for premature coronary artery disease. SOCIAL HISTORY: Negative for current smoking, EtOH abuse or drug abuse. REVIEW OF SYSTEMS: HEENT is unremarkable. CARDIAC: As described above. RESPIRATORY: Negative. GI: Negative. GENITOURINARY: Negative. ALLERGY/IMMUNOLOGY: Negative. SKIN: Negative. MUSCULOSKELETAL: Significant for arthritis. PSYCHOSOCIAL: Negative. DERMATOLOGY: Negative. CONSTITUTIONAL: Negative. ONCOLOGICAL: Negative. MANUAL ARTS THERAPIST: Negative. PHYSICAL EXAMINATION: Comfortable at rest. Vital signs are stable. There is no jugular venous distention. Carotid upstroke is normal. There is no bruit. Chest exam reveals good air entry bilaterally. Heart exam reveals first and second heart sounds, irregular rhythm, no murmur. Abdomen is soft, nontender. Examination of extremities did not reveal any edema. Peripheral pulses are felt. Two sets of cardiac enzymes are negative. BNP is normal. Hemoglobin is normal at 16. Potassium is 4.4, creatinine is 1. ASSESSMENT: Persistent atrial fibrillation with poorly controlled ventricular rate. PLAN: I will treat the patient with beta blockers for rate control, heparin or Eliquis for anticoagulation, check an echocardiogram in the morning, and hopefully discharge home tomorrow and outpatient follow-up STEVEN and cardioversion. MMODL / IJN: [id number] /
[2021-12-12] MEDS: APIXABAN 5 MG TAB PO SCH (16:53)
[2021-12-12] MEDS: FUROSEMIDE 10 MG/ML 4 ML VIAL IV SCH (20:11)
[2021-12-12] MEDS: METOPROLOL TARTRATE 50 MG TAB PO SCH (20:11)
[2021-12-12] MEDS: LATANOPROST 0.005% OPHTH DROPS 2.5 ML BTL BOTH EYES SCH (20:12)
[2021-12-13] MEDS: PANTOPRAZOLE 40 MG TABLET PO SCH (06:21)
[2021-12-13 08:02] LABS: Basophils % (A) 0 %; Eosinophils # (A) 0.1 k/uL (0-0.7); Eosinophils % (A) 2 %; HCT 45.3 % (39.0-53.0); HGB 15.3 gm/dL (13.0-17.5); Lymphocytes # (A) 1.6 k/uL (1.0-4.8); Lymphocytes % (A) 27 %; MCH 31.4 pg (25.0-35.0); MCHC 33.8 g/dL (31.0-37.0); Mean Platelet Volume 7.7; Monocytes # (A) 0.6 k/uL (0-1.0); Monocytes % (A) 11 %; Neutrophils # (A) 3.3 k/uL (1.3-7.7); Neutrophils % (A) 57 %; Platelet Count 172 k/uL (150-450); RBC 4.87 m/uL (4.30-5.90); RDW 12.9 % (11.5-15.5); WBC 5.7 k/uL (3.8-10.6)
[2021-12-13 08:03] LABS: ALT 64 U/L (4-49); AST 37 U/L (17-59); African American GFR (CKD) >90 (>60 ml/min/1.73 sqM); Alkaline Phosphatase 48 U/L (38-126); Anion Gap 5 mmol/L; Blood Urea Nitrogen 24 mg/dL (9-20); Calcium 8.4 mg/dL (8.4-10.2); Carbon Dioxide 28 mmol/L (22-30); Chloride 106 mmol/L (98-107); Glucose 112 mg/dL (74-99); Magnesium 1.9 mg/dL (1.6-2.3); Non-African American GFR(CKD) 81 (>60 ml/min/1.73 sqM); Potassium 3.9 mmol/L (3.5-5.1); Sodium 139 mmol/L (137-145); Total Bilirubin 0.7 mg/dL (0.2-1.3); Total Protein 6.8 g/dL (6.3-8.2)
[2021-12-13] MEDS: ZINC SULFATE 220 MG CAP PO SCH (08:47)
[2021-12-13] MEDS: FUROSEMIDE 10 MG/ML 4 ML VIAL IV SCH ×2 (08:47→21:03)
[2021-12-13] MEDS: APIXABAN 5 MG TAB PO SCH (08:47)
[2021-12-13] MEDS: CYANOCOBALAMIN 500 MCG TAB PO SCH (08:47)
[2021-12-13] MEDS: METOPROLOL TARTRATE 50 MG TAB PO SCH ×2 (08:47→21:04)
[2021-12-13] MEDS: SPIRONOLACTONE 25 MG TAB PO SCH (08:47)
[2021-12-13] MEDS: MULTIVITAMINS, THERA 1 EACH TAB PO SCH (08:47)
[2021-12-13] MEDS: ASPIRIN 325 MG TAB PO SCH (08:47)
--- NOTE | 2021-12-13 10:22 | P.PN ---
Subjective Progress Note Date: 12/13/21 Principal diagnosis: Paroxysmal atrial fibrillation The patient is a pleasant 61-year-old gentleman with a past medical history significant for obesity who was admitted to the hospital with palpitations increasing in the lower 70s edema. He was found to be in atrial fibrillation which is known to him. He also was started on Lasix IV. He was seen this morning. He stated that he still feeling tired and fatigued. The edema in the legs has improved. He continues to be on Lasix IV. On examination he does have clear breathing sounds bilaterally and mild bilateral lower extremities edema. He continues to be in A. fib with overall controlled heart rate. He is on oral anticoagulation. The echo is pending. Objective - Vital Signs Vital signs: Vital Signs Temp 98.2 F 12/13/21 08:00 Pulse 104 H 12/13/21 08:00 Resp 18 12/13/21 08:00 BP 114/75 12/13/21 08:00 Pulse Ox 98 12/13/21 08:58 Intake & Output 12/12/21 12/13/21 12/13/21 18:59 06:59 18:59 Intake Total 349.583 Output Total 2390 Balance -2390 349.583 Weight 140.5 kg 138.9 kg Intake: Intake, IV Titration 109.583 Amount Diltiazem 125 mg In 109.583 Sodium Chloride 0.9% 100 ml @ 5 MG/HR 5 mls/hr IV .Q24H [facility] Rx#:[id number] Oral 240 Output: Urine 2390 Other: Voiding Method Toilet Toilet Toilet Urinal Urinal Urinal # Voids 2 - Constitutional General appearance: Present: no acute distress - Respiratory Respiratory: bilateral: CTA - Cardiovascular Rhythm: irregularly irregular Heart sounds: normal: S1, S2 - Labs CBC & Chem 7: 12/13/21 07:02 12/13/21 07:02 Labs: Abnormal Lab Results - Last 24 Hours (Table) 12/12/21 12/12/21 12/13/21 Range/Units 10:41 10:41 07:02 WBC 12.0 H (3.8-10.6) k/uL Neutrophils # 10.7 H (1.3-7.7) k/uL Lymphocytes # 0.6 L (1.0-4.8) k/uL Carbon Dioxide 21 L (22-30) mmol/L BUN 32 H 24 H (9-20) mg/dL Glucose 121 H 112 H (74-99) mg/dL ALT 62 H 64 H (4-49) U/L Assessment and Plan Assessment: Assessment #1 atrial fibrillation with controlled heart rate. This is a new diagnosis the patient #2 heart failure with evidence of right and left heart failure of unknown etiology #3 overweight Plan #1 continue oral anticoagulation #2 continue the current dose of beta eva #3 follow-up on the echocardiogram #4 continue Lasix IV for additional 24 hours
[2021-12-13 11:05] LABS: Chol/HDL Ratio 2.33 Ratio; LDL Cholesterol,Calculated 34.5 mg/dL (0.0-131.0); VLDL Calculation 17.06 mg/dL (5.00-40.00)
--- NOTE | 2021-12-13 12:56 | P.PN ---
Subjective Progress Note Date: 12/13/21 Chief Complaint: difficulty breathing This is a 61-year-old male who presents emergency department stating that he has been short of breath for at least a month. Patient went to an urgent care today and they told me in atrial fibrillation for came to the hospital. Patient states she's also noted swelling in his legs as well as the shortness of breath. Patient denies any chest pain or pressure. Patient states he has been much more fatigued over the last month. Patient denies any smoking. Patient denies any drinking. Patient denies any recent fever chills or cough. Patient denies abdominal pain patient denies nausea vomiting diarrhea. Patient denies headache patient denies numbness or weakness. Patient denies lightheadedness or dizziness. Interval history: 12/13 patient was seen and examined at the bedside. Patient heart rate is contro lled, he denies any chest pain or shortness of breath. No acute reported changes overnight Objective - Vital Signs Vital signs: Vital Signs Temp 98.6 F 12/13/21 12:00 Pulse 88 12/13/21 12:00 Resp 18 12/13/21 12:00 BP 138/83 12/13/21 12:00 Pulse Ox 98 12/13/21 12:00 Intake & Output 12/12/21 12/13/21 12/13/21 18:59 06:59 18:59 Intake Total 609.583 Output Total 2390 Balance -2390 609.583 Weight 140.5 kg 138.9 kg Intake: Intake, IV Titration 109.583 Amount Diltiazem 125 mg In 109.583 Sodium Chloride 0.9% 100 ml @ 5 MG/HR 5 mls/hr IV .Q24H [facility] Rx#:[id number] Oral 500 Output: Urine 2390 Other: Voiding Method Toilet Toilet Toilet Urinal Urinal Urinal # Voids 2 - Exam General: non toxic, no distress, appears at stated age. Obese Derm: warm, dry Head: atraumatic, normocephalic, symmetric Eyes: EOMI, no lid lag, anicteric sclera Mouth: no lip lesion, mucus membranes moist Cardiovascular: S1S2 irregularly irregular. Lungs: CTA bilateral, no rhonchi, no rales , no accessory muscle use Abdominal: soft, nontender to palpation, no guarding, no appreciable organomegaly Ext: no gross muscle atrophy, no edema, no contractures Neuro: CN II-XI grossly intact, no focal neuro deficits Psych: Alert, oriented, appropriate affect - Labs CBC & Chem 7: 12/13/21 07:02 12/13/21 07:02 Labs: Abnormal Lab Results - Last 24 Hours (Table) 12/13/21 Range/Units 07:02 BUN 24 H (9-20) mg/dL Glucose 112 H (74-99) mg/dL ALT 64 H (4-49) U/L HDL Cholesterol 38.70 L (40.00-60.00) mg/dL Assessment and Plan Assessment: Assessment and plan: #New-onset atrial fibrillation with rapid ventricular response -Coverage controlled currently on Cardizem drip -Switched IV heparin to by mouth Eliquis 5 mg twice daily -Resume Lopressor 50 mg twice daily -2-D echo ordered--pending -TSH is normal -Cardiology consulted #Acute CHF exacerbation -Interstitial edema and a chest x-ray and bilateral lower 70 edema -Possibly secondary to new onset A. fib with rapid ventricular response or tachycardia-induced CHF -2-D echo to check EF -Resume beta blockers Lopressor 50 twice a day -Resume Aldactone -Lasix 40 mg twice daily #Hypertension -Discontinue amlodipine -Patient on by mouth Lopressor #Bilateral lower extremity edema -Possible secondary to CHF. 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
[2021-12-13] MEDS: RIVAROXABAN 20 MG TAB PO SCH (16:35)
[2021-12-13] MEDS: LATANOPROST 0.005% OPHTH DROPS 2.5 ML BTL BOTH EYES SCH (21:04)
[2021-12-14] MEDS: PANTOPRAZOLE 40 MG TABLET PO SCH (06:09)
[2021-12-14 08:15] LABS: Basophils % (A) 1 %; Eosinophils # (A) 0.1 k/uL (0-0.7); Eosinophils % (A) 2 %; HCT 46.6 % (39.0-53.0); HGB 15.7 gm/dL (13.0-17.5); Lymphocytes # (A) 1.9 k/uL (1.0-4.8); Lymphocytes % (A) 30 %; MCH 31.1 pg (25.0-35.0); MCHC 33.7 g/dL (31.0-37.0); MCV 92.4 fL (80.0-100.0); Mean Platelet Volume 7.8; Monocytes # (A) 0.6 k/uL (0-1.0); Monocytes % (A) 10 %; Neutrophils # (A) 3.4 k/uL (1.3-7.7); Neutrophils % (A) 55 %; Platelet Count 197 k/uL (150-450); RBC 5.05 m/uL (4.30-5.90); RDW 12.8 % (11.5-15.5); WBC 6.2 k/uL (3.8-10.6)
[2021-12-14 08:29] LABS: ALT 71 U/L (4-49); AST 41 U/L (17-59); African American GFR (CKD) >90 (>60 ml/min/1.73 sqM); Alkaline Phosphatase 47 U/L (38-126); Anion Gap 4 mmol/L; Blood Urea Nitrogen 22 mg/dL (9-20); Calcium 8.6 mg/dL (8.4-10.2); Carbon Dioxide 30 mmol/L (22-30); Chloride 104 mmol/L (98-107); Glucose 114 mg/dL (74-99); Non-African American GFR(CKD) 86 (>60 ml/min/1.73 sqM); Sodium 138 mmol/L (137-145); Total Bilirubin 0.6 mg/dL (0.2-1.3); Total Protein 6.8 g/dL (6.3-8.2)
[2021-12-14] MEDS: MULTIVITAMINS, THERA 1 EACH TAB PO SCH (08:40)
[2021-12-14] MEDS: METOPROLOL TARTRATE 50 MG TAB PO SCH ×2 (08:40→20:42)
[2021-12-14] MEDS: CYANOCOBALAMIN 500 MCG TAB PO SCH (08:40)
[2021-12-14] MEDS: RIVAROXABAN 20 MG TAB PO SCH (08:40)
[2021-12-14] MEDS: ASPIRIN 325 MG TAB PO SCH (08:40)
[2021-12-14] MEDS: SPIRONOLACTONE 25 MG TAB PO SCH (08:40)
[2021-12-14] MEDS: FUROSEMIDE 10 MG/ML 4 ML VIAL IV SCH (08:40)
[2021-12-14] MEDS: ZINC SULFATE 220 MG CAP PO SCH (08:40)
[2021-12-14 11:59] VITALS: BMI 38.7
[2021-12-14] MEDS: FUROSEMIDE 40 MG TAB PO SCH (15:09)
--- NOTE | 2021-12-14 15:13 | P.PN ---
Subjective The patient is a pleasant 61-year-old gentleman with a past medical history significant for obesity who was admitted to the hospital with palpitations. He was found to be in atrial fibrillation which is known to him. He also was started on Lasix IV. Patient seen and examined at bedside, no acute distress. He is maintaining atrial fibrillation with controlled ventricular rates heart rate in the 70s80s. He denies any chest pain or shortness of breath. The edema in the legs has improved. He continues to be on Lasix IV. He is on oral anticoagulation with xarelto. The echo is pending. GENERAL: Well-appearing, well-nourished and in no acute distress. NECK: Supple without JVD or thyromegaly. LUNGS: Breath sounds clear to auscultation bilaterally. Respiration equal and unlabored. No wheezes, rales or rhonchi. HEART: Irregular rate and rhythm without murmurs, rubs or gallops. S1 and S2 heard. EXTREMITIES: Normal range of motion, no edema. No clubbing or cyanosis. Peripheral pulses intact. ASSESSMENT Paroxysmal atrial fibrillation on Xarelto Heart failure with evidence of right and left heart failure of unknown etiology PLAN Continue oral anticoagulation Continue the current dose of beta eva Follow-up on the echocardiogram Switch to PO Lasix 40mg BID If echocardiogram stable, ok to discharge from cardiology perspective and patient may follow up in the office for discussion for cardioversion as an outpatient Nurse Practitioner note has been reviewed, I agree with a documented findings and plan of care. Patient was seen and examined. Objective - Vital Signs Vital signs: Vital Signs Temp 96.6 F L 12/14/21 12:00 Pulse 76 12/14/21 12:00 Resp 16 12/14/21 12:00 BP 106/71 12/14/21 12:00 Pulse Ox 94 L 12/14/21 12:00 Intake & Output 12/13/21 12/14/21 12/14/21 18:59 06:59 18:59 Intake Total 1927.583 240 240 Output Total 700 2250 1200 Balance 1227.583 Weight 138.9 kg 136.7 kg 136.7 kg Intake: Intake, IV Titration 109.583 Amount Diltiazem 125 mg In 109.583 Sodium Chloride 0.9% 100 ml @ 5 MG/HR 5 mls/hr IV .Q24H [facility] Rx#:[id number] Oral 1818 240 240 Output: Urine 700 2250 1200 Other: Voiding Method Toilet Toilet Urinal Urinal # Voids 1 - Labs CBC & Chem 7: 12/14/21 07:14 12/14/21 07:14 Labs: Abnormal Lab Results - Last 24 Hours (Table) 12/14/21 Range/Units 07:14 BUN 22 H (9-20) mg/dL Glucose 114 H (74-99) mg/dL ALT 71 H (4-49) U/L
--- NOTE | 2021-12-14 16:20 | P.PN ---
Subjective Progress Note Date: 12/14/21 Principal diagnosis: sob Patient is feeling a lot better today. Denies shortness of breath. Swelling in his legs is down. Objective - Vital Signs Vital signs: Vital Signs Temp 97.8 F 12/14/21 15:45 Pulse 85 12/14/21 15:45 Resp 16 12/14/21 15:45 BP 116/81 12/14/21 15:45 Pulse Ox 94 L 12/14/21 15:45 Intake & Output 12/13/21 12/14/21 12/14/21 18:59 06:59 18:59 Intake Total 1927.583 240 240 Output Total 700 2250 1200 Balance 1227.583 -20090 Weight 138.9 kg 136.7 kg 136.7 kg Intake: Intake, IV Titration 109.583 Amount Diltiazem 125 mg In 109.583 Sodium Chloride 0.9% 100 ml @ 5 MG/HR 5 mls/hr IV .Q24H [facility] Rx#:[id number] Oral 1818 240 240 Output: Urine 700 2250 1200 Other: Voiding Method Toilet Toilet Urinal Urinal # Voids 1 - Exam General: non toxic, no distress, appears at stated age. Obese Derm: warm, dry Head: atraumatic, normocephalic, symmetric Eyes: EOMI, no lid lag, anicteric sclera Mouth: no lip lesion, mucus membranes moist Cardiovascular: S1S2 irregularly irregular. Lungs: CTA bilateral, no rhonchi, no rales , no accessory muscle use Abdominal: soft, nontender to palpation, no guarding, no appreciable organomegaly Ext: no gross muscle atrophy, no edema, no contractures Neuro: CN II-XI grossly intact, no focal neuro deficits Psych: Alert, oriented, appropriate affect - Labs CBC & Chem 7: 12/14/21 07:14 12/14/21 07:14 Labs: Abnormal Lab Results - Last 24 Hours (Table) 12/14/21 Range/Units 07:14 BUN 22 H (9-20) mg/dL Glucose 114 H (74-99) mg/dL ALT 71 H (4-49) U/L Assessment and Plan Plan: #New-onset atrial fibrillation with rapid ventricular response -Coverage controlled currently on Cardizem drip -Switched IV heparin to by mouth Eliquis 5 mg twice daily -Resume Lopressor 50 mg twice daily -2-D echo ordered--pending -TSH is normal -Cardiology consulted #Acute CHF exacerbation -Interstitial edema and a chest x-ray and bilateral lower 70 edema -Possibly secondary to new onset A. fib with rapid ventricular response or tachycardia-induced CHF -2-D echo to check EF -Resume beta blockers Lopressor 50 twice a day -Resume Aldactone -Lasix 40 mg twice daily #Hypertension -Discontinue amlodipine -Patient on by mouth Lopressor #Bilateral lower extremity edema -Possible secondary to CHF. 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
[2021-12-14] MEDS: LATANOPROST 0.005% OPHTH DROPS 2.5 ML BTL BOTH EYES SCH (20:42)
[2021-12-15 04:42] VITALS: RESP 18
[2021-12-15] MEDS: PANTOPRAZOLE 40 MG TABLET PO SCH (06:32)
[2021-12-15 08:04] LABS: Basophils # (A) 0.1 k/uL (0-0.2); Basophils % (A) 1 %; Eosinophils # (A) 0.2 k/uL (0-0.7); Eosinophils % (A) 2 %; HCT 47.5 % (39.0-53.0); HGB 16.4 gm/dL (13.0-17.5); Lymphocytes # (A) 2.2 k/uL (1.0-4.8); Lymphocytes % (A) 29 %; MCH 31.9 pg (25.0-35.0); MCHC 34.5 g/dL (31.0-37.0); MCV 92.2 fL (80.0-100.0); Mean Platelet Volume 8.2; Monocytes # (A) 0.7 k/uL (0-1.0); Monocytes % (A) 10 %; Neutrophils # (A) 4.1 k/uL (1.3-7.7); Neutrophils % (A) 55 %; Platelet Count 192 k/uL (150-450); RBC 5.15 m/uL (4.30-5.90); RDW 12.7 % (11.5-15.5); WBC 7.4 k/uL (3.8-10.6)
--- NOTE | 2021-12-15 08:23 | ECHOF ---
Referral Reason:new onset A fib MEASUREMENTS -------- HEIGHT: 182.9 cm WEIGHT: 138.8 kg BP: IVSd: 1.2 cm (0.6 - 1.1) LVIDd: 4.9 cm (3.9 - 5.3) LVPWd: 1.5 cm (0.6 - 1.1) EDV(Teich): 115 ml IVSs: 1.6 cm LVIDs: 3.5 cm LVPWs: 1.5 cm %IVS Thck: 27 % ESV(Teich): 53 ml EF(Teich): 54 % %FS: 28 % SV(Teich): 62 ml Ao Diam: 3.5 cm (2.0 - 3.7) LA Diam: 3.9 cm (2.7 - 3.8) AV Cusp: 2.5 cm (1.5 - 2.6) EPSS: 1.1 cm MV E Jac: 0.64 m/s MV DecT: 247 ms MV Dec [place]: 2.6 m/s MV A Jac: 0.42 m/s MV E/A Ratio: 1.55 MV PHT: 72 ms MR Vmax: 1.41 m/s MR maxP.99 mmHg AV Vmax: 0.98 m/s AV maxP.86 mmHg MV EF SLOPE: 196.47 mm/s (70 - 150) MV EXCURSION: 21.08 mm (> 18.000) FINDINGS -------- Atrial fibrillation. This was a technically difficult study with suboptimal views. The left ventricular size is normal. There is mild concentric left ventricular hypertrophy. Overa ll left ventricular systolic function is mildly impaired with, an EF between 45 - 50 %. The right ventricle is normal in size. The left atrial size is normal. The right atrial size is normal. Lumason used The aortic valve is trileaflet and appears structurally normal. The mitral valve is normal. There is trace mitral regurgitation. The tricuspid valve appears structurally normal. Trace tricuspid regurgitation present. Right guy tricular systolic pressure is normal at < 35 mmHg. The pulmonic valve was not well visualized. The aortic root size is normal. IVC Not well visulized. CONCLUSIONS -------- 1. The left ventricular size is normal. 2. There is mild concentric left ventricular hypertrophy. 3. Overall left ventricular systolic function is mildly impaired with, an EF between 45 - 50 %. 4. There is trace mitral regurgitation. 5. Trace tricuspid regurgitation present. TRANSISTOR TESTER: Carla Alonso RDCS
[2021-12-15 08:32] LABS: ALT 73 U/L (4-49); AST 40 U/L (17-59); African American GFR (CKD) >90 (>60 ml/min/1.73 sqM); Alkaline Phosphatase 48 U/L (38-126); Anion Gap 8 mmol/L; Blood Urea Nitrogen 22 mg/dL (9-20); Calcium 8.8 mg/dL (8.4-10.2); Carbon Dioxide 25 mmol/L (22-30); Chloride 103 mmol/L (98-107); Glucose 109 mg/dL (74-99); Non-African American GFR(CKD) 86 (>60 ml/min/1.73 sqM); Sodium 136 mmol/L (137-145); Total Bilirubin 0.8 mg/dL (0.2-1.3); Total Protein 6.9 g/dL (6.3-8.2)
[2021-12-15 09:10] VITALS: BP 115/83; PULSE 72; TEMP 97.6
[2021-12-15] MEDS: CYANOCOBALAMIN 500 MCG TAB PO SCH (09:12)
[2021-12-15] MEDS: METOPROLOL TARTRATE 50 MG TAB PO SCH (09:12)
[2021-12-15] MEDS: FUROSEMIDE 40 MG TAB PO SCH (09:12)
[2021-12-15] MEDS: ZINC SULFATE 220 MG CAP PO SCH (09:13)
[2021-12-15] MEDS: MULTIVITAMINS, THERA 1 EACH TAB PO SCH (09:13)
[2021-12-15] MEDS: RIVAROXABAN 20 MG TAB PO SCH (09:13)
[2021-12-15] MEDS: SPIRONOLACTONE 25 MG TAB PO SCH (09:13)
--- NOTE | 2021-12-15 09:19 | P.DS ---
Providers Date of admission: 12/12/21 11:18 Expected date of discharge: 12/14/21 Attending physician: Alberto Ladd MD Consults: 12/12/21 11:18 Consult Physician Urgent Consulting Provider: [facility] Consult Reason/Comments: A. fib with rapid ventricular response Do you want consulting provider notified?: Yes Primary care physician: Kyle Mcwilliams MD Hospital Course: 61-year-old male who presents emergency department stating that he has been short of breath for at least a month. Patient went to an urgent care and they told him he was in atrial fibrillation and he was advised to come to the hospital. Patient also had swelling in his legs. No chest pain or pressure. Patient states he has been much more fatigued over the last month. Patient denies any smoking. Patient denies any drinking. Patient denies any recent fever chills or cough. Patient denies abdominal pain patient denies nausea vomiting diarrhea. Patient denies headache patient denies numbness or weakness. Patient denies lightheadedness or dizziness. Upon admission he was found to have atrial fibrillation with rapid ventricular response. Was started on cardizem drip as well as IV heparin. He was later switched to lopressor and eliquis. 2 D echo stable according to cardiology, showed EF of 45-50%. Patient was also diuresed with Lasix IV. Breathing and legs swelling improved. Today he is cleared by cardio for discharge, he will be sent home in a stable condition. He will need to follow up with cardiology in the office. Plan - Discharge Summary Discharge Rx Participant: No New Discharge Prescriptions: New Metoprolol Tartrate [Lopressor] 50 mg PO BID 30 Days #60 tab Rivaroxaban [Xarelto] 20 mg PO DAILY 30 Days #30 tab Furosemide [Lasix] 40 mg PO BID@0900,1600 30 Days #60 tab Continue Spironolactone [Aldactone] 25 mg PO DAILY Albuterol Inhaler [Ventolin Hfa Inhaler] 2 puff INHALATION RT-QID PRN PRN Reason: Shortness Of Breath Latanoprost [Xalatan 0.005%] 1 drop BOTH EYES HS Zinc 50 mg PO DAILY Multivit-Min/FA/Lycopen/Lutein [Centrum Silver Men Tablet] 1 tab PO DAILY Fluticasone Nasal [place] [Flonase Nasal [place]] 1 - 2 spray EA NOSTRIL DAILY PRN PRN Reason: Allergy Symptoms Cyanocobalamin (Vitamin B-12) [Vitamin B-12] 1,000 mcg PO DAILY Discontinued amLODIPine [Norvasc] 10 mg PO DAILY Discharge Medication List Spironolactone [Aldactone] 25 mg PO DAILY 07/31/17 [History] Latanoprost [Xalatan 0.005%] 1 drop BOTH EYES HS 01/10/21 [History] Albuterol Inhaler [Ventolin Hfa Inhaler] 2 puff INHALATION RT-QID PRN 12/12/21 [History] Cyanocobalamin (Vitamin B-12) [Vitamin B-12] 1,000 mcg PO DAILY 12/12/21 [History] Fluticasone Nasal [place] [Flonase Nasal [place]] 1 - 2 spray EA NOSTRIL DAILY PRN 12/12/21 [History] Multivit-Min/FA/Lycopen/Lutein [Centrum Silver Men Tablet] 1 tab PO DAILY 12/12/21 [History] Zinc 50 mg PO DAILY 12/12/21 [History] Rivaroxaban [Xarelto] 20 mg PO DAILY 30 Days #30 tab 12/13/21 [Rx] Furosemide [Lasix] 40 mg PO BID@0900,1600 30 Days #60 tab 12/14/21 [Rx] Metoprolol Tartrate [Lopressor] 50 mg PO BID 30 Days #60 tab 12/14/21 [Rx] Follow up Appointment(s)/Referral(s): Milton Gold MD [STAFF PHYSICIAN] - 1 Week Kyle Mcwilliams MD [Primary Care Provider] - 1-2 days
--- NOTE | 2021-12-15 12:52 | P.PN ---
Subjective The patient is a pleasant 61-year-old gentleman with a past medical history significant for obesity. 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 He was admitted to the hospital with palpitations. He was found to be in atrial fibrillation which is known to him. He also was started on Lasix IV. Patient seen and examined at bedside, no acute distress. He is maintaining atrial fibrillation with controlled ventricular rates heart rate in the 70s80s. He denies any chest pain or shortness of breath. The edema in the legs has improved. He is on PO Lasix as transitioned yesterday. Vital signs stable. He is on oral anticoagulation with xarelto. Echocardiogram revealed EF 4550 percent, trace mitral regurgitation, trace tricuspid regurgitation. GENERAL: Well-appearing, well-nourished and in no acute distress. NECK: Supple without JVD or thyromegaly. LUNGS: Breath sounds clear to auscultation bilaterally. Respiration equal and unlabored. No wheezes, rales or rhonchi. HEART: Irregular rate and rhythm without murmurs, rubs or gallops. S1 and S2 heard. EXTREMITIES: Normal range of motion, no edema. No clubbing or cyanosis. Peripheral pulses intact. ASSESSMENT Paroxysmal atrial fibrillation on Xarelto Heart failure with evidence of right and left heart failure with preserved ejection fraction, borderling 45-50% Cardiomyopathy EF 45-50%, likely non-ischemic PLAN Continue oral anticoagulation Continue the current dose of beta eva Follow-up on the echocardiogram Switch to PO Lasix 40mg BID From cardiology perspective, patient stable for discharge home. Follow up with Dr. Gold in one week. Nurse Practitioner note has been reviewed, I agree with a documented findings and plan of care. Patient was seen and examined. Objective - Vital Signs Vital signs: Vital Signs Temp 97.6 F 12/15/21 08:00 Pulse 72 12/15/21 08:00 Resp 18 12/15/21 08:00 BP 115/83 12/15/21 08:00 Pulse Ox 95 12/15/21 08:00 Intake & Output 12/14/21 12/15/21 12/15/21 18:59 06:59 18:59 Intake Total 360 250 240 Output Total 1200 1000 Balance -840 -750 240 Weight 136.7 kg 136.3 kg Intake: Oral 360 250 240 Output: Urine 1200 1000 Other: Voiding Method Toilet Urinal - Labs CBC & Chem 7: 12/15/21 07:01 12/15/21 07:01 Labs: Abnormal Lab Results - Last 24 Hours (Table) 12/15/21 Range/Units 07:01 Sodium 136 L (137-145) mmol/L BUN 22 H (9-20) mg/dL Glucose 109 H (74-99) mg/dL ALT 73 H (4-49) U/L
== END 2021-12-15 11:49 | disposition home or self-care (01) | DRG 309 ==
LOC: EC 10:21 → 3SCARD 11:18
PROVIDERS: ADMIT Internal Medicine; ATTEND Internal Medicine
DX: I48.19 Other persistent atrial fibrillation (principal); I50.1 Left ventricular failure, unspecified; I50.32 Chronic diastolic (congestive) heart failure; I11.0 Hypertensive heart disease with heart failure; G47.33 Obstructive sleep apnea (adult) (pediatric); Z68.39 Body mass index [BMI] 39.0-39.9, adult; I08.1 Rheumatic disorders of both mitral and tricuspid valves; E66.9 Obesity, unspecified; K21.9 Gastro-esophageal reflux disease without esophagitis; R73.03 Prediabetes; R00.0 Tachycardia, unspecified; I25.5 Ischemic cardiomyopathy; J44.9 Chronic obstructive pulmonary disease, unspecified; Z79.01 Long term (current) use of anticoagulants; Z79.899 Other long term (current) drug therapy; Z87.891 Personal history of nicotine dependence; Z87.19 Personal history of other diseases of the digestive system
CPT/HCPCS: 36415; 71046; 80053; 80061; 83036; 83605; 83735; 83880; 84443; 84484; 85025; 85610; 85730; 93005; 93306; 93970; 94640; 96365; 96366; 96375; 99291

== ENCOUNTER → 2021-12-24 | Outpatient (CLI) | payer BC ==
[2021-12-24 14:17] LABS: Basophils # (A) 0.05 X 10*3/uL (0.00-0.10); Basophils % (A) 0.6 %; Eosinophils # (A) 0.14 X 10*3/uL (0.04-0.35); Eosinophils % (A) 1.8 %; HCT 47.1 % (39.6-50.0); HGB 15.6 g/dL (13.0-17.0); Immature Grans, Automated 0.3 %; Lymphocytes # (A) 2.56 X 10*3/uL (0.90-5.00); Lymphocytes % (A) 32.9 %; MCH 30.1 pg (27.0-32.0); MCHC 33.1 g/dL (32.0-37.0); MCV 90.9 fL (80.0-97.0); Mean Platelet Volume 10.4 fL (9.5-12.2); Monocytes # (A) 0.79 X 10*3/uL (0.20-1.00); Monocytes % (A) 10.1 %; NRBC Per 100 WBC 0 /100 WBCS (0.0-0.0); Neutrophils # (A) 4.23 X 10*3/uL (1.80-7.70); Neutrophils % (A) 54.3 %; Platelet Count 229 X 10*3/uL (140-440); RBC 5.18 X 10*6/uL (4.40-5.60); RDW 12.6 % (11.5-14.5); WBC 7.79 X 10*3/uL (4.50-10.00)
[2021-12-24 14:40] LABS: African American GFR (CKD) 69.4 (60.0-200.0); Albumin 4.5 g/dL (3.8-4.9); Albumin/Globulin Ratio 1.77 (1.60-3.17); Anion Gap 15.8 mmol/L (10.00-18.00); BUN/Creat Ratio 16.2 Ratio (12.00-20.00); Blood Urea Nitrogen 20.9 mg/dL (9.0-27.0); Calcium 9.8 mg/dL (8.7-10.3); Carbon Dioxide 22.7 mmol/L (20.0-27.5); Globulin 2.5 g/dL (1.6-3.3); Non-African American GFR(CKD) 59.9 (60.0-200.0); PSA Annual Screen 0.2 ng/mL (0.000-4.000); Total Bilirubin 0.6 mg/dL (0.30-1.20)
== END | disposition home or self-care (01) ==
LOC: LABWHC1 08:40
PROVIDERS: ATTEND Internal Medicine
DX: Z12.5 Encounter for screening for malignant neoplasm of prostate (principal); I10 Essential (primary) hypertension; E55.9 Vitamin D deficiency, unspecified
CPT/HCPCS: 80053; 85025; 82306; 36415; G0103

== ENCOUNTER → 2022-01-31 | Outpatient (CLI) | payer BC ==
--- NOTE | 2022-01-31 08:11 | US ---
EXAMINATION TYPE: US abdomen complete DATE OF EXAM: 01/31/2022 COMPARISON: CT, US CLINICAL HISTORY: N17.9 acute kidney injury. Acute kidney injury. EXAM MEASUREMENTS: Liver Length: 14.1 cm Gallbladder Wall: 0.18 cm Spleen: 11.2 cm Right Kidney: 13.0 x 6.5 x 6.0 cm Left Kidney: 13.5 x 6.5 x 7.1 cm Limited due to gas and patient body habitus. Pancreas: Tail is obscured by bowel gas. Liver: Appears very coarse with increased attenuation. Multiple anechoic areas and septated anechoic areas seen within. Largest septated area in left lobe measures: 3.7 x 3.5 x 3.8 cm. Hypoechoic area seen left lobe: 5.9 x 5.1 x 5.0 cm ?possible focal fatty sparing. Anechoic area seen right lobe: 9.5 x 9.4 x 8.0 cm. Slightly hypoechoic area seen within the right lobe: 2.7 x 2.5 x 2.1 cm. Gallbladder: Appears anechoic. Evidence for sonographic Swift's sign: No. CBD: Obscured. Spleen: Appears wnl Right Kidney: Appears enlarged. Left Kidney: Appears enlarged. Anechoic area seen laterally at the lower pole: 5.6 x 5.7 x 5.8 cm. S lightly irregular contour upper anterior pole. Upper IVC: Appears wnl. Abd Aorta: Proximal segment appears ectatic. Iliacs obscured by gas. IMPRESSION: 1. Hepatic steatosis there is a focal fatty sparing. Multiple hepatic cysts.
== END | disposition home or self-care (01) ==
LOC: RADUSWWP 06:51
PROVIDERS: ATTEND Internal Medicine
DX: K76.0 Fatty (change of) liver, not elsewhere classified (principal); K76.89 Other specified diseases of liver
CPT/HCPCS: 76700

== ENCOUNTER → 2022-08-16 | Outpatient (CLI) | payer BC ==
--- NOTE | 2022-08-17 08:22 | PN ---
PROGRESS NOTE SUBJECTIVE: This patient is coming in for a routine compliancy check regarding his obstructive sleep apnea treatment. 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 Subsequent polysomnography was done and the patient was found to have severe disease with an AHI of 83. Based on that, the patient was given an APAP machine and the patient is currently being treated with an APAP pressure minimum of 5 and a maximum of 20 and he is using a medium-sized Simplus full-face mask. He continues to drive and he is fully alert and awake during the day. He is not falling asleep while driving and his level of alertness has been excellent. No history of any motor vehicle accident because of feeling drowsy or sleepy. On today's evaluation, his BP was noted to be slightly elevated and this is something to be monitored. His weight has remained stable at 306 pounds. I checked the compliance data that was collected between 07/17/2022 and 08/15/2022 and the patient has achieved more than 4 hours of CPAP use 100% of the time. The patient has been averaging around 6 hours and 31 minutes of CPAP use per night. The patient's average pressure utilized is around 9.9 cm of water. AHI is down to 1.8 while on treatment. The leak is minimal at around 2 L/minute. As such, the patient carries a very successful treatment. No headache, no hypersomnia, no sleepiness. No chest pain. No other complaints otherwise during day-to-day activities. PHYSICAL EXAMINATION: VITAL SIGNS: BP is 151/99, pulse 82, respirations 16, temperature 97.2, saturation 96% on room air. GENERAL APPEARANCE: Appears calm, comfortable. HEAD: Atraumatic, normocephalic. NECK: Supple. No JVD. No goiter or neck LUNGS: Clear to auscultation. HEART: Sounds regular rhythm. Normal S1, S2. No S3, S4. No murmurs. ABDOMEN: Soft, nontender. No organomegaly. EXTREMITIES: No edema, no cyanosis or clubbing. SKIN: Negative for any wounds or ulceration. IMPRESSION: 1. Severe obstructive pulmonary disease with an AHI of 83 and the patient undergoing a successful CPAP titration. 2. Previous history of uvulopalatopharyngoplasty. 3. Chronic hypersomnia, improved. 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 5. Obesity with a BMI of 41. 6. Hypertension. 7. Glaucoma. PLAN: No issues with the patient's level of alertness. The patient is fully awake and the patient has been very compliant with CPAP therapy. 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 Continue using CPAP machine at same level of pressure. Compliancy was checked, the numbers look great and the patient will see me back in followup in 1 year's time. All of his supplies were refilled. He has good sleep hygiene measures. We will continue to follow. MMODL / IJN: [id number] /
== END ==
LOC: SLEEP 14:33
PROVIDERS: ATTEND Internal Medicine Critical Care Medicine
DX: Z53.9 Procedure and treatment not carried out, unspecified reason (principal)

== ENCOUNTER → 2022-12-27 | Outpatient (CLI) | payer BC ==
[2022-12-27 17:50] LABS: Basophils # (A) 0.1 k/uL (0-0.2); Basophils % (A) 1 %; Eosinophils # (A) 0.2 k/uL (0-0.7); Eosinophils % (A) 2 %; HCT 45.8 % (39.0-53.0); HGB 15.7 gm/dL (13.0-17.5); Lymphocytes # (A) 2.4 k/uL (1.0-4.8); Lymphocytes % (A) 26 %; MCH 30.9 pg (25.0-35.0); MCHC 34.3 g/dL (31.0-37.0); MCV 90.2 fL (80.0-100.0); Mean Platelet Volume 7.9; Monocytes # (A) 0.9 k/uL (0-1.0); Monocytes % (A) 10 %; Neutrophils # (A) 5.5 k/uL (1.3-7.7); Neutrophils % (A) 60 %; Platelet Count 173 k/uL (150-450); RBC 5.08 m/uL (4.30-5.90); RDW 12.6 % (11.5-15.5); WBC 9.2 k/uL (3.8-10.6)
[2022-12-27 18:01] LABS: Potassium 4.3 mmol/L (3.5-5.1)
== END | disposition home or self-care (01) ==
LOC: LABPAT 16:20
PROVIDERS: ATTEND Orthopaedic Surgery
DX: M75.41 Impingement syndrome of right shoulder (principal)
CPT/HCPCS: 80051; 85025

== ENCOUNTER → 2022-12-27 | Outpatient (CLI) | payer BC ==
--- NOTE | 2022-12-28 08:01 | XR ---
EXAMINATION TYPE: XR chest 2V DATE OF EXAM: 12/27/2022 COMPARISON: 11/14/2021 INDICATION: Cough TECHNIQUE: Frontal and lateral views of the chest are obtained. FINDINGS: The heart size is normal. The pulmonary vasculature is normal. The lungs are clear. IMPRESSION: 1. No acute pulmonary process.
== END | disposition home or self-care (01) ==
LOC: RADXRMAIN 16:24
PROVIDERS: ATTEND Internal Medicine
DX: R05.9 Cough, unspecified (principal)
CPT/HCPCS: 71046

== ENCOUNTER 2022-12-29 09:06 | Day surgery (SDC) | payer BC, OTHER ==
--- NOTE | 2022-12-29 07:12 | HP ---
HISTORY AND PHYSICAL DATE OF SURGERY: 12/29/2022. HISTORY OF PRESENT ILLNESS: Bam Snyder is a 62-year-old gentleman, seen after a right shoulder injury. His MRI revealed a rotator cuff tendon tear. We discussed options for treatment. He elected to proceed with right shoulder arthroscopy. Consent was obtained. PAST MEDICAL HISTORY: Hypertension, glaucoma, and sleep apnea. PAST SURGICAL HISTORY: None. DAILY MEDICATIONS: 1. Furosemide. 2. Losartan. 3. Metoprolol. 4. Spironolactone. ALLERGIES: None reported. SOCIAL HISTORY: Denies current tobacco use. PHYSICAL EVALUATION OF THE RIGHT SHOULDER: Flexion is 20 degrees, abduction is 20 degrees, external rotation is -20 degrees with pain and significant weakness. Tenderness along the anterolateral acromion and rotator cuff insertion. Impingement is positive at 50 degrees. Drop-arm sign is positive. Distal neurovascular exam is intact. IMAGING STUDIES: Right shoulder radiographs revealed a type 2 acromion as well as evidence for some acromioclavicular joint osteoarthritis. An MRI of the right shoulder revealed a massive retracted rotator cuff tear along with a partial biceps tendon tear and severe acromioclavicular joint osteoarthritis. IMPRESSION: 1. Right shoulder impingement with massive traumatic rotator cuff tear. 2. Right shoulder acromioclavicular joint osteoarthritis. 3. Right shoulder partial biceps tendon tear. 4. Right shoulder labral tear. PLAN: Right shoulder arthroscopy with subacromial decompression, arthroscopic rotator cuff repair, Tian procedure, biceps tenotomy and debridement. Surgery is scheduled for 12/29/2022. MMODL / IJN: [id number] /
[~2022-12-29 09:06] MED LIST: DEXAMETHASONE SOD PHOSPHATE 4 MG/ML 1 ML VIAL IV ONE; HYDROmorphone 0.5 MG/0.5 ML SYRINGE IVP PRN; LACTATED RINGERS 1,000 ML IV SCH; LIDOCAINE 1% (10MG/ML) FOR IV START INTRADERMA PRN; ONDANSETRON 4 MG/2 ML VIAL IVP ONE
[2022-12-29] MEDS ORDERED: MIDAZOLAM 2 MG/2 ML VIAL IVP ONE (10:01)
--- NOTE | 2022-12-29 10:37 | P.ANPRN ---
Procedure Note - Anesthesia - Nerve Block Performed Right Interscalene Single Time Out Performed: Yes (1000) Date of Procedure: 12/29/22 Procedure Start Time: 10:00 Procedure Stop Time: 10:08 Location of Patient: PreOp Indication: Acute Post-Operative Pain, Dx/Pain Location (Right Shoulder), Requested by Surgeon Specifically requested for management of pain by DrAlirio: Ramez Sainz Sedation Type: Sedate with meaningful contact maintained Preparation: Sterile Prep Position: Supine Catheter: None Needle Types: Pajunk Needle Gauge: 21 Ultrasound used to visualize needle placement: Yes Ultrasound used to observe medication spread: Yes Injectate: 0.5% Ropivacaine (see comment for volume) (30 cc + 4 mg of decadron) Blood Aspirated: No Pain Paresthesia on Injection Noted: No Resistance on Injection: Normal Image Stored and Saved: Yes Events: Uneventful and Well Tolerated
[2022-12-29] MEDS ORDERED: HYDROmorphone (PF) 1 MG/ML ONE (11:34)
[2022-12-29] MEDS ORDERED: LIDOCAINE 2% INJ 20 MG/ML (2 ML VIAL) ONE (11:34)
[2022-12-29] MEDS ORDERED: PROPOFOL 10 MG/ML 20 ML VIAL IV ONE (11:34)
[2022-12-29] MEDS ORDERED: ROPIVACAINE 5 MG/ML 30 ML VIAL ONE (11:34)
[2022-12-29] MEDS ORDERED: SUCCINYLCHOLINE CHLORIDE 200 MG/10 ML VIAL IV ONE (11:34)
[2022-12-29] MEDS ORDERED: fentaNYL (PF) 50 MCG/ML 2 ML AMP ONE (11:34)
[2022-12-29] MEDS ORDERED: DEXAMETHASONE SOD PHOSPHATE 4 MG/ML 1 ML VIAL ONE (11:34)
[2022-12-29] MEDS ORDERED: PHENYLEPHRINE-0.9% NACL SYG 1,000 MCG/10 ML SYRINGE ONE (11:34)
[2022-12-29] MEDS ORDERED: SODIUM CHLORIDE 0.9% (PF) 10 ML VIAL ONE (11:34)
[2022-12-29] MEDS ORDERED: MIDAZOLAM 2 MG/2 ML VIAL ONE (11:34)
[2022-12-29] MEDS ORDERED: ceFAZolin 1,000 MG VIAL ONE (11:34)
[2022-12-29] MEDS ORDERED: SODIUM CHLORIDE 0.9% 100 ML with ceFAZolin 3,000 MG IV ONE ×2 (11:38)
[2022-12-29] MEDS ORDERED: LACTATED RINGERS 1,000 ML IV ONE (13:17)
--- NOTE | 2022-12-29 13:40 | P.OP ---
Date of Procedure: 12/29/22 Preoperative Diagnosis: Right shoulder rotator cuff tear Postoperative Diagnosis: 1. Right shoulder massive retracted rotator cuff tear 2. Right shoulder impingement 3. Right shoulder partial long head biceps tendon tear 4. Right shoulder labral tear Procedure(s) Performed: 1. Right shoulder arthroscopic rotator cuff repair 2. Right shoulder arthroscopic subacromial decompression 3. Right shoulder arthroscopic biceps tenotomy 4. Right shoulder arthroscopic debridement labral tear Implants: 4Arthrex 4.75 swivel lock anchors Anesthesia: GETA, regional (Interscalene block) Surgeon: Ramez Sainz Vinyl Cutter #1: Omar Shaver Estimated Blood Loss (ml): 7 Pathology: none sent Condition: stable Disposition: PACU Indications for Procedure: 62-year-old gentleman seen with right shoulder pain and limited range of motion consistent with rotator cuff tendon tear. We discussed treatment options, he elected to proceed with arthroscopy. Consent regarding procedure was obtained. Operative Findings: See description of procedure Description of Procedure: Patient underwent an interscalene block by department of anesthesia. The patient was then taken to the operative suite. The patient underwent a general anesthetic by the department of anesthesia. The patient was placed into a lateral position and secured. There was appropriate padding of the bony prom inence. Right shoulder was then prepped and draped in normal sterile orthopedic fashion. We placed the extremity in 10 pounds of longitudinal traction. A posterior incision was now made for a posterior working portal site. The trocar and cannula were inserted into the glenohumeral joint. Arthroscopy was initiated. Spinal needle was now inserted anteriorly, to ascertain the anterior working portal site. An incision was now made in that area, a trocar was inserted followed by a probe. There was significant superficial tearing of the anterior and superior labrum. There was significant partial tearing long head biceps tendon. There were grade 1 chondromalacia changes of the glenohumeral joint. I debrided out the superficial labral tear. I performed an arthroscopic biceps tenotomy. The residual labrum was stable. At this point instruments removed from the glenohumeral joint. Utilizing the posterior working portal site, the trocar and cannula were inserted into the subacromial space. Arthroscopy initiated. I made an incision 2 fingerbreadths lateral to the acromion. I introduced my trocar followed by my ArthroCare ablator. I now began ablating thick subacromial bursal tissue, which exposed the undersurface of the anterior acromion. There was diminished subacromial space. There was a very prominent anterior acromion. A motorized bur was introduced and a subacromial decompression was performed. I also excised some osteophytes off the inferior aspect of the distal clavicle. The AC joint was visualized and noted to be moderately arthritic, I did not think enough toward a Tian procedure. I now turned my attention to the rotator cuff tendon. There was a massive retracted tear present. The tear measured approximately 4.5 cm and was retracted approximately 3 cm. I try to mobilize the tendon over the footprint and I could not. I now began meticulously releasing the tendon along the proximal aspect. I also debrided the torn margins getting down to stable tendon tissue. The defect/tear measured approximate 5 cm in I still was unable to bring it over the footprint completely. I cheated along the articular margin by about 5 mm and also debrided the footprint with a motorized bur. I now could just barely get the tendon over the edge of the footprint. I decided to proceed with repair. I now created to barbering teacher he portal sites off the lateral acromion, one anterior and one posterior. I now and anterior medial row anchors were fiber tape sutures. I debrided this posteriorly again utilizing an Arthrex anchor with Arthrex suture tapes. I now with assistance of Julián WATERS passed all 8 limbs of suture through good bites of rotator cuff tendon. I augmented this with additional suture tapes anteriorly and posteriorly. I now abducted the arm and punched a hole for lateral fixation. We chose 5 of our suture limbs brought it through the eyelet of a 4.75 swivel lock anchor. I placed set anchor into our pre-punch hole. I held an anchor in position while Julián WATERS tension all 5 limbs of suture and deployed that anchor with good fixation noted. Residual suture limbs were clipped. I now shuttled the remaining 5 suture limbs through our lateral portal site. A partial hole posterior laterally for the lateral posterior anchor. All 5 limbs of suture were passed through the eyelet of a 4.75 swivel lock anchor. I placed the eyelet into the pre-punch hole. I held it in position while Julián WATERS tension all 5 limbs of suture and deployed that anchor with good fixation noted. The residual suture limbs were clipped. We did appear to have good coverage of the massive tear anterior posteriorly. There was an area centrally where we just did not get good coverage of the tendon over a footprint. With rotation the entire construct moved together. Instruments now removed from the portal sites. All portal sites were approximated with nylon suture. Sterile dressings were applied followed by a shoulder immobilizer. Omar WATERS assisted in this complex case. The patient was awakened, transferred to a bed, and taken to recovery in stable condition. The prognosis is certainly guarded given this massive retracted tear and the inability to completely repair the central portion over the footprint.
[2022-12-29 13:49] VITALS: TEMP 97
[2022-12-29] MEDS ORDERED: METOCLOPRAMIDE 5 MG/ML 2 ML VIAL ONE (15:02)
[2022-12-29] MEDS ORDERED: METOCLOPRAMIDE 5 MG/ML 2 ML VIAL IVP ONE (15:08)
[2022-12-29 16:38] VITALS: RESP 20
[2022-12-29] MEDS ORDERED: IPRATROPIUM-ALBUTEROL 3 ML NEB INHALATION STA (16:41)
[2022-12-29] MEDS ORDERED: ONDANSETRON 4 MG/2 ML VIAL ONE (16:43)
[2022-12-29] MEDS ORDERED: ONDANSETRON 4 MG/2 ML VIAL IVP ONE (16:47)
[2022-12-29] MEDS ORDERED: ALBUTEROL NEBULIZED 2.5 MG/3 ML INHALATION ONE (16:51)
[2022-12-29 17:21] VITALS: BP 118/76; PULSE 95
== END 2022-12-29 17:55 | disposition home or self-care (01) ==
LOC: OR 09:06
PROVIDERS: ATTEND Orthopaedic Surgery
DX: S46.011A Strain of muscle(s) and tendon(s) of the rotator cuff of right shoulder, initial encounter (principal); M19.011 Primary osteoarthritis, right shoulder; S43.431A Superior glenoid labrum lesion of right shoulder, initial encounter; S46.111A Strain of muscle, fascia and tendon of long head of biceps, right arm, initial encounter; M75.41 Impingement syndrome of right shoulder; M94.211 Chondromalacia, right shoulder; X58.XXXA Exposure to other specified factors, initial encounter; I48.91 Unspecified atrial fibrillation; I10 Essential (primary) hypertension; H40.9 Unspecified glaucoma; G47.33 Obstructive sleep apnea (adult) (pediatric); Z79.899 Other long term (current) drug therapy; Z99.89 Dependence on other enabling machines and devices; K21.9 Gastro-esophageal reflux disease without esophagitis; Z79.01 Long term (current) use of anticoagulants; Z98.890 Other specified postprocedural states
CPT/HCPCS: 29827; 29826; 64415; 76942; C1713 ×4; J2250; J0330; J1100; J2765; J2405; J0690; J3010; J1170; J2795; J2370; J2704; J2001

== ENCOUNTER → 2023-05-23 | Outpatient (CLI) | payer BC ==
[2023-05-23 15:32] LABS: HGB 15.5 d/dL (13.0-17.0); MCH 30.3 pg (27.0-32.0); MCHC 33.7 d/dL (32.0-37.0); MCV 89.8 FL (80.0-97.0); Mean Platelet Volume 10.4 FL (9.5-12.2); NRBC Per 100 WBC 0 X 10*3/uL (0.00-0.01); Platelet Count 195 X 10*3/uL (140-440); RBC 5.12 X 10*6/uL (4.40-5.60); RDW 12.9 % (11.5-14.5); WBC 8.61 X 10*3/uL (4.50-10.00)
[2023-05-23 15:46] LABS: Blood Urea Nitrogen 16.8 mg/dL (9.0-27.0); Carbon Dioxide 27.9 mmol/L (21.6-31.8); Chloride 102 mmol/L (96-109); Potassium 3.8 mmol/L (3.5-5.5); Sodium 142 mmol/L (135-145)
== END | disposition home or self-care (01) ==
LOC: LABPAT 10:08
PROVIDERS: ATTEND Internal Medicine Clinical Cardiac Electrophysiology
DX: Z01.812 Encounter for preprocedural laboratory examination (principal); I48.19 Other persistent atrial fibrillation
CPT/HCPCS: 80051; 82565; 84520; 85027

== ENCOUNTER 2023-05-30 05:41 | Day surgery (SDC) | payer BC ==
[2023-05-30] MEDS ORDERED: SODIUM CHLORIDE 0.9% 1,000 ML IV ONE (06:47)
[2023-05-30] MEDS ORDERED: ONDANSETRON 4 MG/2 ML VIAL ONE (07:25)
[2023-05-30] MEDS ORDERED: PROPOFOL 10 MG/ML 20 ML VIAL IV ONE (07:26)
[2023-05-30] MEDS ORDERED: fentaNYL (PF) 50 MCG/ML 2 ML AMP ONE (07:26)
[2023-05-30] MEDS ORDERED: SUCCINYLCHOLINE CHLORIDE 200 MG/10 ML VIAL IV ONE (07:26)
[2023-05-30] MEDS ORDERED: HYDROmorphone (PF) 1 MG/ML ONE (07:26)
[2023-05-30] MEDS ORDERED: HEPARIN SODIUM,PORCINE 10,000 UNIT/ML 1 ML VIAL ONE (07:26)
[2023-05-30] MEDS ORDERED: MIDAZOLAM 2 MG/2 ML VIAL ONE (07:26)
[2023-05-30] MEDS ORDERED: HEPARIN SOD,PORK IN 0.45% NACL 25,000 UNIT in 0.45% NACL 1 250ML.BAG IV ONE (07:37)
[2023-05-30] MEDS ORDERED: LIDOCAINE 1% INJ 10MG/ML (20 ML MDV) ONE (07:39)
[2023-05-30] MEDS ORDERED: LIDOCAINE 1% INJ 10MG/ML (30 ML VIAL-PF) SQ ONE (08:11)
[2023-05-30] MEDS ORDERED: IOPAMIDOL-370 100ML BTL INJ ONE (10:09)
[2023-05-30] MEDS ORDERED: LACTATED RINGERS 1,000 ML IV ONE (10:24)
--- NOTE | 2023-05-30 11:08 | P.HPCAR ---
History of Present Illness This is Dr. Cr dictating an H/P on this patient The patient was interviewed and examined IMPRESSION / ASSESSMENT: Persistent atrial fibrillation with RVR Failed treatment. Atrial fibrillation Complains of tiredness fatigue Status sleep apnea uses CPAP mask Preserved LV systolic function on STEVEN normal valves PLAN: A. fib ablation for persistent atrial fibrillation line continue xarelto HPI Patient continues to complain of tiredness and fatigue. He remains in atrial fibrillation However he denies any syncope or chest discomfort No fever chills cough expectoration or any respiratory issues at this time ROS: No fever chills or rigors, no cough, phlegm or expectoration, no nausea, vomiting or diarrhea, no hematuria, dysuria, no musculoskeletal complaints, no strokes or seizures, no skin lesions. EXAMINATION: 114/64 mmHg Heart rate 7 the 80s and 90s Afebrile Breath sounds are clear no rhonchi no crackles Irregular rhythm no murmurs No JVD No lower extremity edema Soft abdomen nontender REVIEW OF LABS, ECG & MEDICAL DATA Xarelto, spironolactone, losartan, Lasix and metoprolol Physical Exam Vitals: Vital Signs Temp Pulse Pulse Resp BP BP Pulse Ox 05/30/23 11:00 83 16 114/64 93 L 05/30/23 10:45 97 F L 82 16 115/62 93 L 05/30/23 06:51 98.1 F 90 18 168/112 165/99 95 Intake and Output 05/29/23 05/30/23 05/30/23 22:59 06:59 14:59 Intake Total 50 1037 Balance 50 1037 Intake: IV 50 1037 Other: Weight 144.1 kg Past Medical History Past Medical History: Atrial Fibrillation, Hypertension, Osteoarthritis (OA), Sleep Apnea/CPAP/BIPAP Additional Past Medical History / Comment(s): BLE EDEMA AT TIMES-none currently, seasonal allergies, nasal drainage at this time on flonase, C5 arthritis. uses cpap, see Dr Cr H & P History of Any Multi-Drug Resistant Organisms: None Reported Past Surgical History: Hernia Repair, Orthopedic Surgery, Tonsillectomy Additional Past Surgical History / Comment(s): UPPP, uvula removed. cardioversion, right shoulder arthroscopy,. COLONOSCOPY. sinus surgery with removal of polyps Past Anesthesia/Blood Transfusion Reactions: No Reported Reaction Smoking Status: Never smoker - Past Family History Mother Family Medical History: Cancer Additional Family Medical History / Comment(s): cervical cancer Father Family Medical History: Cancer Additional Family Medical History / Comment(s): brain tumor removed. gall stones removed. Physical Examination Vital Signs Temp Pulse Pulse Resp BP BP Pulse Ox 05/30/23 11:00 83 16 114/64 93 L 05/30/23 10:45 97 F L 82 16 115/62 93 L 05/30/23 06:51 98.1 F 90 18 168/112 165/99 95 Intake and Output 05/29/23 05/30/23 05/30/23 22:59 06:59 14:59 Intake Total 50 1037 Balance 50 1037 Intake: IV 50 1037 Other: Weight 144.1 kg Results Current Medications Generic Name Dose Route Start Last Admin Trade Name Freq PRN Reason Stop Dose Admin Acetaminophen 650 mg 05/30/23 11:00 Acetaminophen Tab 325 Mg Tab PO 06/29/23 11:01 Q6HR PRN Mild Pain (Scale 1 to 3) Furosemide 40 mg 05/30/23 21:00 Furosemide 40 Mg Tab PO 06/29/23 21:01 BID [facility] Sodium Chloride 1,000 mls @ 20 mls/hr 05/30/23 06:14 Saline 0.9% IV 06/29/23 06:15 .Q24H CHERRY Acetaminophen 1,000 mg/ IV 100 mls @ 400 mls/hr 05/30/23 11:00 Solution IVPB 05/30/23 11:14 ONCE ONE Latanoprost 1 drops 05/30/23 21:00 Latanoprost 0.005% Ophth Drops 2.5 Ml Btl BOTH EYES 06/29/23 21:01 HS [facility] Losartan Potassium 25 mg 05/31/23 09:00 Losartan 25 Mg Tab PO 06/30/23 09:01 DAILY [facility] Metoprolol Tartrate 25 mg 05/30/23 21:00 Metoprolol Tartrate 50 Mg Tab PO 06/29/23 21:01 BID [facility] Rivaroxaban 20 mg 05/31/23 09:00 Rivaroxaban 20 Mg Tab PO 06/30/23 09:01 DAILY [facility] Protocol Sodium Chloride 12 ml 05/30/23 11:00 Sodium Chloride 0.9% Flush 10 Ml Syringe IV 06/29/23 11:01 Q12HR PRN Line Flush Spironolactone 25 mg 05/31/23 09:00 Spironolactone 25 Mg Tab PO 06/30/23 09:01 DAILY CHERRY Intake and Output 05/29/23 05/30/23 05/30/23 22:59 06:59 14:59 Intake Total 50 1037 Balance 50 1037 Intake: IV 50 1037 Other: Weight 144.1 kg
--- NOTE | 2023-05-30 11:12 | P.EPPROC ---
- EP Procedure Note Electrophysiology Procedure Note: PROCEDURE Persistent A. fib ablation with PVI, left atrial roof ablation and ablation of the left atrial septum DIAGNOSIS Atrial fibrillation, symptomatic, refractory to therapy, persistent RESULT No left atrial appendage mass seen on intracardiac echo, thickened pericardium without effusion, dilated left atrium Successful A. fib ablation/pulmonary vein isolation of all veins using cryo- ablation Complete entrance block in all 4 veins confirmed Ablation of the left atrial roof, successful Ablation of left atrial septum and the carinal tissue in between left superior and left inferior pulmonary veins No evidence for phrenic nerve injury Esophageal deflection YES, Electrical cardioversion with a synchronized shock across the chest YES PROCEDURE DETAILS Written informed consent prior to procedure. Patient brought to the EP lab. General anesthesia given. Heparin administered. A city maintained above 300 seconds Both groins prepped and draped per protocol and venous sheaths placed. Esophagus intubated, circa catheter for temperature monitoring an endoscope for possible esophageal deflection. Phrenic nerve monitoring performed. Esophageal temperature monitoring performed. Esophageal deflection performed if circa catheter overlapping with the balloon or circa temperature less than 27.5C Intracardiac echocardiography performed. Pericardium evaluated. Left atrial appendage evaluated. Left atrium evaluated along with pulmonary veins Transseptal catheterization performed under fluoroscopic guidance and intracardiac echo guidance Cryoablation sheath exchanged, balloon catheter along with achieve catheter placed in the left atrium. Pulmonary veins isolated in the following sequence: Left superior pulmonary vein followed by left inferior pulmonary vein, followed by right inferior pulmonary vein and lastly right superior pulmonary vein. Phrenic nerve stimulation along with capture thresholds within the SVC and right superior pulmonary vein to identify the phrenic nerve proximity to the cryo- balloon. Pulmonary veins isolated and confirmed with entrance and exit block. Phrenic nerve integrity confirmed at the end of the procedure Ablation of the left atrial roof performed with sequential lesions from the left superior to the right superior pulmonary veins. Ablation of the electrograms confirmed Ablation of the left atrial septum performed with cannulation of the superior branch of the right inferior or the inferior branch of the right superior vein to achieve ablation of the posterior septum of the left atrium. Ablation of the emily in between the left superior and left inferior pulmonary veins performed successfully with ablation of electrograms Ablation of electrograms confirmed Electrical cardioversion performed for persistence of atrial fibrillation despite successful ablation. Diagnostic catheters for the high right atrium, His bundle, coronary sinus placed. LA and RA pressures recorded RA pressure: 15/10/13 LA pressure: 19/6/14 Diagnostic EP study with coronary sinus pacing and recording Baseline measurements: Sinus cycle length 679 ms, TN interval 161 ms, QRS 97 ms and QT interval 480 ms AH 78 ms and HV 58 ms Venous sheaths were removed and hemostasis assured with a closure device. Patient extubated and transferred to recovery PROCEDURES PERFORMED Diagnostic EP study CS pacing and recording Left and right transseptal catheterization Catheter the mapping of the tachycardia Intracardiac echocardiography Pulmonary vein isolation with transseptal and comprehensive EPS, [id number] Left atrial roof line, +[id number] ablation, posterior septum left atrium, +[id number] Electrical cardioversion with a synchronized shock across the chest [id number]
[2023-05-30] MEDS ORDERED: ACETAMINOPHEN IV (For NPO) 1,000 MG in EMPTY BAG 1 BAG IVPB ONE (12:00)
[2023-05-30] MEDS: SODIUM CHLORIDE 0.9% 1,000 ML IV SCH (12:50)
[2023-05-30] MEDS ORDERED: ONDANSETRON 4 MG/2 ML VIAL IVP PRN (16:30)
[2023-05-30] MEDS: FUROSEMIDE 40 MG TAB PO SCH (16:59)
[2023-05-30] MEDS: LATANOPROST 0.005% OPHTH DROPS 2.5 ML BTL BOTH EYES SCH (20:36)
[2023-05-30] MEDS ORDERED: METOPROLOL TARTRATE 25 MG TAB PO SCH (21:00)
[2023-05-30] MEDS ORDERED: RIVAROXABAN 20 MG TAB PO ONE (21:00)
[2023-05-31] MEDS: SODIUM CHLORIDE 0.9% 1,000 ML IV SCH (05:11)
[2023-05-31] MEDS: ACETAMINOPHEN TAB 325 MG TAB PO PRN ×3 (05:40→18:57)
[2023-05-31] MEDS: LOSARTAN 25 MG TAB PO SCH (08:28)
[2023-05-31] MEDS: FUROSEMIDE 40 MG TAB PO SCH ×2 (08:28→15:39)
[2023-05-31] MEDS: METOPROLOL TARTRATE 50 MG TAB PO SCH ×2 (08:28→19:58)
[2023-05-31] MEDS: RIVAROXABAN 20 MG TAB PO SCH (08:28)
[2023-05-31] MEDS: SPIRONOLACTONE 25 MG TAB PO SCH (08:28)
--- NOTE | 2023-05-31 15:31 | DS ---
Progress note of 05/31/2023 Bam Snyder is a 62-year-old male patient with persistent atrial fibrillation. He underwent EP study and ablation for atrial fibrillation for persistent atrial fibrillation that was difficult to rate control as well as maintain sinus rhythm. Intracardiac echo revealed reduced LV systolic function and evidence of pericarditis without effusion prior to the ablation. His pulmonary veins are large; the left atrium was large. Successful ablation of the pulmonary veins was performed at an antral level. Carinal ablation in between the left-sided pulmonary veins was performed. Ablation of the left atrial septum was performed. Ablation of the left atrial roof was performed. This morning, he still feels nauseous. He had stated prior to the procedure that after anesthesia he gets very nauseous and does not feel well. He was given Decadron and started on Zofran preoperatively by Anesthesia. On examination, vitals are stable. Heart rates are in the 80s. Heart sounds are normal. Breath sounds are clear. From a neurologic standpoint, he appears normal. His cranial nerves are normal and his motor strength is normal. He does have a mild headache. IMPRESSION: 1. Persistent atrial fibrillation, refractory to therapy, status post atrial fibrillation ablation yesterday. 2. History of cardiomyopathy. 3. Mild pericarditis noted on intracardiac echo. PLAN: 1. Continue anticoagulation with Xarelto. 2. Continue cardiomyopathy medications. 3. IV fluids today and start with clear liquids and progress to solids thereafter. 4. If he is feeling well and is stable, then he will be discharged home later on this afternoon and will follow up with me in a week's time. Update Patient was still nauseous with headache and not feeling well And therefore we decided to keep him for another 24 hours. Observation and continuation of medications Discharge canceled MMODL / IJN: [id number] / MTDAdilson
[2023-05-31] MEDS: LATANOPROST 0.005% OPHTH DROPS 2.5 ML BTL BOTH EYES SCH (21:18)
[2023-06-01] MEDS: ACETAMINOPHEN TAB 325 MG TAB PO PRN (00:29)
[2023-06-01] MEDS: SODIUM CHLORIDE 0.9% 1,000 ML IV SCH (05:17)
[2023-06-01 07:00] LABS: African American GFR (CKD) >90 (>60 ml/min/1.73 sqM); Anion Gap 9 mmol/L; Blood Urea Nitrogen 15 mg/dL (9-20); Calcium 8.5 mg/dL (8.4-10.2); Carbon Dioxide 27 mmol/L (22-30); Chloride 99 mmol/L (98-107); Glucose 111 mg/dL (74-99); Magnesium 2.2 mg/dL (1.6-2.3); Non-African American GFR(CKD) >90 (>60 ml/min/1.73 sqM); Potassium 3.8 mmol/L (3.5-5.1); Sodium 135 mmol/L (137-145)
[2023-06-01 07:10] VITALS: BP 131/88; PULSE 73; RESP 15; TEMP 97.8
[2023-06-01] MEDS: LOSARTAN 25 MG TAB PO SCH (08:24)
[2023-06-01] MEDS: RIVAROXABAN 20 MG TAB PO SCH (08:24)
[2023-06-01] MEDS: METOPROLOL TARTRATE 50 MG TAB PO SCH (08:24)
[2023-06-01] MEDS: FUROSEMIDE 40 MG TAB PO SCH (08:24)
[2023-06-01] MEDS: SPIRONOLACTONE 25 MG TAB PO SCH (08:24)
--- NOTE | 2023-06-01 12:23 | P.DS ---
Providers Attending physician: Kaleb Cr Primary care physician: Kyle Mcwilliams MD Hospital Course: Patient is doing a lot better No headache no nausea He is less tired and less short of breath. He's been ablating around the room On examination blood pressure 131/88 mmHg pulse rate 73-91 beats a minute sinus On examination breath sounds are clear no rhonchi no crackles Normal heart sounds no murmurs no gallops. No lower extremity edema No JVD He still complains of little phlegm and therefore I gave him an incentive spirometer for regular use for the next few weeks Telemetry showed one brother wide complex tachycardia left bundle branch block possibly nonsustained VT He does have cardio myopathy His heart rates are in the 80s mostly in sinus rhythm Plan Change metoprolol tartrate to metoprolol succinate He will now take metoprolol succinate 100 mg by mouth daily starting tomorrow Continue xarelto in all of the heart failure medications Hopefully by maintains sinus rhythm and with medical treatment and his LV function improves He will be discharged today and will follow with Dr. Tim in a week Plan - Discharge Summary Discharge Rx Participant: No New Discharge Prescriptions: New Metoprolol Succinate [Toprol XL] 100 mg PO DAILY #90 tab Discontinued Metoprolol Tartrate [Lopressor] 50 mg PO BID 30 Days #60 tab No Action Spironolactone [Aldactone] 25 mg PO DAILY Furosemide [Lasix] 40 mg PO BID Ascorbic Acid [Vitamin C] 500 mg PO DAILY Losartan Potassium [Cozaar] 25 mg PO DAILY Latanoprost [Xalatan 0.005%] 1 drop BOTH EYES HS Multivit-Min/FA/Lycopen/Lutein [Centrum Silver Men Tablet] 1 tab PO DAILY Fluticasone Nasal Rupert [Flonase Nasal Rupert] 1 - 2 spray EA NOSTRIL BID Rivaroxaban [Xarelto] 20 mg PO DAILY 30 Days #30 tab Discharge Medication List Spironolactone [Aldactone] 25 mg PO DAILY 07/31/17 [History] Latanoprost [Xalatan 0.005%] 1 drop BOTH EYES HS 01/10/21 [History] Fluticasone Nasal Rupert [Flonase Nasal Rupert] 1 - 2 spray EA NOSTRIL BID 12/12/21 [History] Multivit-Min/FA/Lycopen/Lutein [Centrum Silver Men Tablet] 1 tab PO DAILY 12/12/21 [History] Rivaroxaban [Xarelto] 20 mg PO DAILY 30 Days #30 tab 12/13/21 [Rx] Ascorbic Acid [Vitamin C] 500 mg PO DAILY 12/30/21 [History] Furosemide [Lasix] 40 mg PO BID 12/30/21 [History] Losartan Potassium [Cozaar] 25 mg PO DAILY 12/30/21 [History] Metoprolol Succinate [Toprol XL] 100 mg PO DAILY #90 tab 06/01/23 [Rx] Follow up Appointment(s)/Referral(s): Kaleb Cr MD [STAFF PHYSICIAN] - As Needed (Follow-up with Dr. Tim in 1 week Continue Xarelto Reduce metoprolol to 25 mg twice daily) Activity/Diet/Wound Care/Special Instructions: Post EP study - Ablation instructions 1. Keep access sites dry for 2 days. 2. No heavy lifting or straining for 2 days. 3. Avoid bending the hips repeatedly for 2 days. 4. You may go up and down stairs slowly Call if the following is noted 1. Bleeding, increasing swelling or pain at the access sites. 2. Increasing chest discomfort, especially upon taking a deep breath. 3. Increasing shortness of breath, at rest or with exertion. 4. Undue cough / phlegm 5. Difficulty or pain while swallowing. 6. Pain or change in color in the extremities. 7. Fever, chills, rigors. 8. Increasing headache or neurologic symptoms. 9. Dizziness, fainting, palpitations Discontinue metoprolol tartrate Start metoprolol succinate 100 mg by mouth daily Continue xarelto in all other cardiac medications Discharge Disposition: HOME SELF-CARE
== END 2023-06-01 13:43 | disposition home or self-care (01) ==
LOC: CATHEP 05:41 → 6NMEDSUR 10:23 → CATHEP 06-01 13:43
PROVIDERS: ATTEND Internal Medicine Clinical Cardiac Electrophysiology
DX: I48.19 Other persistent atrial fibrillation (principal); I10 Essential (primary) hypertension; M19.90 Unspecified osteoarthritis, unspecified site; G47.30 Sleep apnea, unspecified; Z90.89 Acquired absence of other organs; Z98.890 Other specified postprocedural states
CPT/HCPCS: 93656; 93657; 86900; 86901; 80048; 83735; 86850; C1894 ×2; C1769 ×3; C1760; C1893; C1733; C1766; J2405 ×2; J2001; Q9967; J1644

== ENCOUNTER → 2023-11-03 | Outpatient (CLI) | payer BC ==
--- NOTE | 2023-11-03 10:05 | XR ---
EXAMINATION TYPE: XR chest 2V DATE OF EXAM: 11/03/2023 COMPARISON: 12/27/2022 HISTORY: Shortness of breath TECHNIQUE: Frontal and lateral views of the chest are obtained. FINDINGS: Scattered senescent parenchymal changes noted. Hyperinflation compatible with COPD. No evidence for infiltrate. No evidence for atelectasis. Heart size is stable. Mediastinal structures are stable and grossly unremarkable. No evidence for hilar prominence. Degenerative changes dorsal spine. IMPRESSION: 1. No evidence for acute pulmonary disease.
== END | disposition home or self-care (01) ==
LOC: RADXRMAIN 09:42
PROVIDERS: ATTEND Internal Medicine
DX: R06.02 Shortness of breath (principal); R05.9 Cough, unspecified
CPT/HCPCS: 71046

== ENCOUNTER → 2023-11-21 | Outpatient (CLI) | payer BC ==
[2023-11-21 16:50] LABS: % Iron Saturation 37.07 (15.00-50.00); ALT 60 U/L (10-49); AST 34 U/L (14-35); Albumin 4.4 g/dL (3.8-4.9); Albumin/Globulin Ratio 1.83 Ratio (1.60-3.17); Alkaline Phosphatase 58 U/L (41-126); Blood Urea Nitrogen 18.6 mg/dL (9.0-27.0); Carbon Dioxide 26.2 mmol/L (21.6-31.8); Chloride 104 mmol/L (96-109); Globulin 2.4 g/dL (1.6-3.3); Glucose 109 mg/dL (70-110); Iron 139 UG/DL (65-175); Potassium 3.7 mmol/L (3.5-5.5); Sodium 141 mmol/L (135-145); Total Bilirubin 0.5 mg/dL (0.3-1.2); Total Iron Binding Capacity 375 UG/DL (228-460); Total Protein 6.8 g/dL (6.2-8.2)
[2023-11-21 17:09] LABS: Hepatitis A Antibody IgM Nonreactive; Hepatitis B Core IgM Nonreactive; Hepatitis B Surface Antigen Nonreactive; Hepatitis C IgG Antibody Nonreactive
[2023-11-21 17:21] LABS: Ceruloplasmin 21.7 mg/dL (20.0-60.0)
== END | disposition home or self-care (01) ==
LOC: LABWHC1 08:38
PROVIDERS: ATTEND Internal Medicine
DX: K75.81 Nonalcoholic steatohepatitis (NASH) (principal)
CPT/HCPCS: 36415; 80053; 80074; 82248; 82390; 83516; 83540; 83550; 86038

== ENCOUNTER → 2024-03-15 | Outpatient (CLI) | payer BC ==
[2024-03-15 12:24] LABS: Chol/HDL Ratio 2.96 Ratio; LDL Cholesterol,Calculated 62.7 mg/dL (0.0-131.0); PSA Annual Screen 0.163 ng/mL (0.000-4.000)
== END | disposition home or self-care (01) ==
LOC: LABWHC1 07:31
PROVIDERS: ATTEND Internal Medicine
DX: Z12.5 Encounter for screening for malignant neoplasm of prostate (principal); K75.81 Nonalcoholic steatohepatitis (NASH); E55.9 Vitamin D deficiency, unspecified; E11.9 Type 2 diabetes mellitus without complications
CPT/HCPCS: 80061; 82306; 83036; 36415; G0103

== ENCOUNTER → 2024-03-20 | Outpatient (CLI) | payer BC ==
[2024-03-20 10:16] LABS: Basophils # (A) 0.04 X 10*3/uL (0.00-0.10); Basophils % (A) 0.6 %; Eosinophils # (A) 0.11 X 10*3/uL (0.04-0.35); Eosinophils % (A) 1.6 %; HGB 14.6 g/dL (13.0-17.0); Lymphocytes # (A) 2.07 X 10*3/uL (0.90-5.00); Lymphocytes % (A) 30.9 %; MCH 29.8 pg (27.0-32.0); MCHC 33.2 g/dL (32.0-37.0); MCV 89.8 FL (80.0-97.0); Mean Platelet Volume 9.9 FL (9.5-12.2); NRBC Per 100 WBC 0 X 10*3/uL (0.00-0.01); Neutrophils # (A) 3.85 X 10*3/uL (1.80-7.70); Neutrophils % (A) 57.6 %; Platelet Count 191 X 10*3/uL (140-440); RDW 13.2 % (11.5-14.5); WBC 6.69 X 10*3/uL (4.50-10.00)
[2024-03-20 10:22] LABS: ALT 37 U/L (10-49); AST 26 U/L (14-35); Albumin 4.5 g/dL (3.8-4.9); Albumin/Globulin Ratio 1.96 Ratio (1.60-3.17); Alkaline Phosphatase 71 U/L (41-126); Calcium 9.1 mg/dL (8.7-10.3); Carbon Dioxide 23.2 mmol/L (21.6-31.8); Chloride 103 mmol/L (96-109); Globulin 2.3 g/dL (1.6-3.3); Glucose 116 mg/dL (70-110); Potassium 3.7 mmol/L (3.5-5.5); Sodium 140 mmol/L (135-145); Total Bilirubin 0.5 mg/dL (0.3-1.2); Total Protein 6.8 g/dL (6.2-8.2)
== END | disposition home or self-care (01) ==
LOC: LABWHC1 07:12
PROVIDERS: ATTEND Internal Medicine Gastroenterology
DX: K76.0 Fatty (change of) liver, not elsewhere classified (principal); R74.01 Elevation of levels of liver transaminase levels
CPT/HCPCS: 36415; 80053; 81596; 85025

== ENCOUNTER → 2024-04-05 | Outpatient (CLI) | payer BC ==
--- NOTE | 2024-04-05 17:06 | US ---
EXAMINATION TYPE: US liver DATE OF EXAM: 04/05/2024 COMPARISON: Abdominal ultrasound 01/31/2022 CLINICAL INDICATION: Male, 63 years old with history of R74.01 ELEVATION OF LEVELS OF LIVER TRANSAMIN ASE L; LFTs TECHNIQUE: Multiple sonographic images of the right upper quadrant are obtained. 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 Focal fatty sparing adjacent to gallbladder. Several hepatic cy sts, largest measured in each lobe: left: 4.2x3.3x3.8 right: 7.8x6.7x7.8 Gallbladder: wnl Evidence for sonographic Swift's sign: No CBD: wnl Right Kidney: No hydronephrosis or masses seen exam limited by bowel and body habitus The visualized pancreas is unremarkable. Gallbladder is within normal limits without cholelithiasis, wall thickening, or surrounding fluid. Negative sonographic Swift's sign. Common bile duct is within normal limits. Right kidney demonstrates no hydronephrosis, solid mass, or nephrolithiasis. Several thin-walled anechoic avascular cyst identified within the liver. Largest within the left hepatic lobe measures up to 4.2 cm. Largest within the right hepatic lobe measures up to 7.8 cm. IMPRESSION: 1. No ultrasound evidence for acute process. 2. Several benign hepatic cysts. 3. Hepatic steatosis with focal fatty sparing.
== END | disposition home or self-care (01) ==
LOC: RADUSWWP 07:00
PROVIDERS: ATTEND Internal Medicine Gastroenterology
DX: R74.01 Elevation of levels of liver transaminase levels (principal); K76.0 Fatty (change of) liver, not elsewhere classified; K76.89 Other specified diseases of liver
CPT/HCPCS: 76705

== ENCOUNTER → 2024-10-01 | Outpatient (CLI) | payer BC ==
[2024-10-01 15:15] LABS: ALT 25 U/L (10-49); AST 24 U/L (14-35); Albumin 4.7 g/dL (3.8-4.9); Albumin/Globulin Ratio 2.04 Ratio (1.60-3.17); Alkaline Phosphatase 74 U/L (41-126); BUN/Creat Ratio 28.78 Ratio (12.00-20.00); Blood Urea Nitrogen 25.9 mg/dL (9.0-27.0); Calcium 9.2 mg/dL (8.7-10.3); Carbon Dioxide 26.7 mmol/L (21.6-31.8); Chloride 105 mmol/L (96-109); Globulin 2.3 g/dL (1.6-3.3); Glucose 105 mg/dL (70-110); Sodium 143 mmol/L (135-145); Total Bilirubin 0.6 mg/dL (0.3-1.2)
[2024-10-01 15:34] LABS: Basophils # (A) 0.04 X 10*3/uL (0.00-0.10); Basophils % (A) 0.6 %; Eosinophils # (A) 0.14 X 10*3/uL (0.04-0.35); HCT 42.8 % (39.6-50.0); HGB 14.2 g/dL (13.0-17.0); Lymphocytes # (A) 2.42 X 10*3/uL (0.90-5.00); Lymphocytes % (A) 35.2 %; MCH 30.3 pg (27.0-32.0); MCHC 33.2 g/dL (32.0-37.0); MCV 91.5 FL (80.0-97.0); Mean Platelet Volume 9.6 FL (9.5-12.2); Monocytes # (A) 0.61 X 10*3/uL (0.20-1.00); Monocytes % (A) 8.9 %; NRBC Per 100 WBC 0 X 10*3/uL (0.00-0.01); Neutrophils # (A) 3.64 X 10*3/uL (1.80-7.70); Platelet Count 188 X 10*3/uL (140-440); RBC 4.68 X 10*6/uL (4.40-5.60); RDW 13.2 % (11.5-14.5); WBC 6.87 X 10*3/uL (4.50-10.00)
== END | disposition home or self-care (01) ==
LOC: LABWHC1 08:09
PROVIDERS: ATTEND Internal Medicine Gastroenterology
DX: R74.01 Elevation of levels of liver transaminase levels (principal)
CPT/HCPCS: 36415; 80053; 85025

== ENCOUNTER → 2025-04-01 | Outpatient (CLI) | payer BC ==
[2025-04-01 15:06] LABS: Basophils # (A) 0.04 X 10*3/uL (0.00-0.10); Basophils % (A) 0.6 %; Eosinophils # (A) 0.12 X 10*3/uL (0.04-0.35); Eosinophils % (A) 1.9 %; HCT 42.0 % (39.6-50.0); HGB 14.0 g/dL (13.0-17.0); Immature Grans, Automated 0.20 %; Lymphocytes # (A) 2.10 X 10*3/uL (0.90-5.00); Lymphocytes % (A) 33.0 %; MCH 30.0 pg (27.0-32.0); MCHC 33.3 g/dL (32.0-37.0); MCV 89.9 FL (80.0-97.0); Monocytes # (A) 0.59 X 10*3/uL (0.20-1.00); Monocytes % (A) 9.3 %; NRBC Per 100 WBC 0 X 10*3/uL (0.00-0.01); Neutrophils # (A) 3.51 X 10*3/uL (1.80-7.70); Neutrophils % (A) 55.0 %; Platelet Count 160 X 10*3/uL (140-440); RBC 4.67 X 10*6/uL (4.40-5.60); RDW 12.7 % (11.5-14.5); WBC 6.37 X 10*3/uL (4.50-10.00)
[2025-04-01 15:18] LABS: ALT 27 U/L (10-49); AST 25 U/L (14-35); Albumin 4.4 g/dL (3.8-4.9); Albumin/Globulin Ratio 1.83 Ratio (1.60-3.17); Alkaline Phosphatase 54 U/L (41-126); Anion Gap 11.20 mmol/L (4.00-12.00); BUN/Creat Ratio 23.60 Ratio (12.00-20.00); Blood Urea Nitrogen 23.6 mg/dL (9.0-27.0); Calcium 9.1 mg/dL (8.7-10.3); Carbon Dioxide 24.8 mmol/L (21.6-31.8); Chloride 103 mmol/L (96-109); Globulin 2.4 g/dL (1.6-3.3); Glucose 107 mg/dL (70-110); Potassium 4.0 mmol/L (3.5-5.5); Sodium 139 mmol/L (135-145); Total Protein 6.8 g/dL (6.2-8.2)
== END | disposition home or self-care (01) ==
LOC: LABWHC1 07:38
PROVIDERS: ATTEND Nurse Practitioner Family
DX: R74.01 Elevation of levels of liver transaminase levels (principal)
CPT/HCPCS: 36415; 80053; 85025